=== PATIENT | female | born 1930 | race American Indian/Alaskan Native ===

== ENCOUNTER 2018-10-30 14:07 | Inpatient (IN) | payer MEDICARE, OTHER ==
[2018-10-30 14:08] VITALS: BMI 229.7
--- NOTE | 2018-10-30 15:19 | C.PDOC ---
History Of Present Illness 88 year old female with PMHx of dementia, HTN, and DVT presents [facility] the ED from [facility] for nose bleed. Patient is bleeding actively from nares. Denies any other physical complaints. HPI limited due to patient's clinical condition. Time Seen by Provider: 10/30/18 14:22 Chief Complaint (Nursing): ENT Problem History Per: Patient History/Exam Limitations: Clinical Condition Onset/Duration Of Symptoms: Hrs Current Symptoms Are (Timing): Still Present Past Medical History Reviewed: Historical Data, Nursing Documentation, Vital Signs Vital Signs: Last Vital Signs Temp 97.2 F L 10/30/18 14:12 Pulse 85 10/30/18 14:12 Resp 18 10/30/18 14:12 BP 127/46 L 10/30/18 14:12 Pulse Ox 84 L 10/30/18 14:12 - Medical History PMH: Arthritis, Dementia, Deep Vein Thrombosis, HTN, Hypercholesterolemia, Hypothyroidism Denies: Chronic Kidney Disease Surgical History: Coronary Stent Denies: Pacemaker - [facility] Procedures ESOPHAGOGASTRODUODENOSCOPY [EGD] W/CLOSED BIOPSY (03/26/01) FLEXIBLE SIGMOIDOSCOPY (03/26/01) INSERT INFUSION DEV IN L EXT JUGULAR VEIN, PERC (10/13/18) INSERTION OF INFUSION DEV INTO SUP VENA CAVA, PERC APPROACH (10/13/18) INTRODUCE OF OTH ANTI-INFECT INTO PERIPH VEIN, PERC APPROACH (10/13/18) ULTRASONOGRAPHY OF LEFT JUGULAR VEINS, GUIDANCE (10/13/18) ULTRASONOGRAPHY OF SUPERIOR VENA CAVA, GUIDANCE (10/13/18) Family History: States: No Known Family Hx - Social History Hx Alcohol Use: No Hx Substance Use: No - Immunization History Hx Tetanus Toxoid Vaccination: No Hx Influenza Vaccination: No Hx Pneumococcal Vaccination: No Review Of Systems Except As Marked, All Systems Reviewed And Found Negative. (limited due to patient's clinical condition) ENT: Positive for: Other (epistaxis ) Physical Exam - Physical Exam Additional Physical Exam Comments: Gen: VS reviewed, alert, well developed, well nourished, nontoxic, mild distress Eye: EOMI, PERRL Nose: Large blood clot in left nostril, dried blood noted to right nostril. Neck: no JVD, supple, no adenopathy CV: regular rate, regular rhythm, no rubs,no murmur, S1, S2 Pulm: no distress, clear to auscultation, no wheeze, no rhonchi, breath sounds equal, no rales Abd: soft, nontender, no guarding, no rebound, no rigidity Ext: Appears to move upper extremities spontaneously. Edema to b/l extremities. Pressure boots in b/l feet. Back: As per nursing, large sacral decubitus ulcer. Skin: good color, no rash, no cyanosis Psych: Limited due to patient's clinical condition Neuro: alert, awake. Limited due to patient clinical condition. ED Course And Treatment - Laboratory Results Result Diagrams: 10/30/18 18:45 10/30/18 18:45 ECG: Interpreted By Me (1447: sinus rhythm at 78 bpm, nml qrs, nml axis, low voltage, nonspecific t wave abn) O2 Sat by Pulse Oximetry: 84 (RA) Pulse Ox Interpretation: Abnormal Procedure: Blank - Time Time Performed: 18:41 - Time Out Time Out: Side verified, Site verified, Patient ID confirmed, Sterile procedures obs. - Procedure Procedure:: venipuncture necessitating physician skill - Consent obtained: Consent obtained: Verbal (from son) - Performed by: Performed by:: Attending physician - Indications Indications(s):: lack of IV access - Contraindications: Contraindications:: None - Result Result: Successful - Complications Complications:: Other (a 20 g IV was placed in the left AC, ultrasound guided, IV catheter was visualized directly into the EJ.) - Patient Tolerated Procedure Patient Tolerated Procedure:: Well Medical Decision Making Medical Decision Making: Procedure: Temporary packing placement 7.5cm Rapid Rhino placed in the left nostril. No further bleeding or drop noted to left nostril. Dried blood noted to right nostril. No blood noted to back of throat. 635p: the left midline catheter was nonfunctioning and could not be flushed. it was removed by myself, bleeding was noted and pressure dressing was applied. 710p: admit accepted by dr. lima, patient to be admitted for acute anemia. anemia possibly for acute blood loss from anemia but unlikely. transfuse 2 units prbc. consult to dr. steel and dr. murillo for ENT Disposition - Disposition Disposition: HOSPITALIZED Disposition Time: 19:10 Condition: GUARDED - Clinical Impression Clinical Impression: Anemia, Anterior epistaxis - Scribe Statement The provider has reviewed the documentation as recorded by the Scribe Shakila Paneque All medical record entries made by the Swapna were at my direction and personally dictated by me. I have reviewed the chart and agree that the record accurately reflects my personal performance of the history, physical exam, medical decision making, and the department course for this patient. I have also personally directed, reviewed, and agree with the discharge instructions and disposition.
[2018-10-30 18:58] LABS: BASO % 0.3 % (0.0-2.0); EOS # 0.1 K/uL (0.0-0.7); HEMOGLOBIN 7.4 g/dL (11.0-16.0); LYMPH # 1.2 K/uL (1.0-4.3); LYMPH % 10.3 % (20.0-40.0); MEAN CELL VOLUME 81.5 fL (81.0-99.0); MEAN CORPUSCULAR HGB CONC 31.9 g/dL (33.0-37.0); MEAN PLATELET VOLUME 8.3 fL (7.2-11.7); MONO # 0.6 K/uL (0.0-0.8); MONO % 5.3 % (0.0-10.0); NEUT # 9.7 K/uL (1.8-7.0); NEUT % 83.1 % (50.0-75.0); RBC 2.83 Mil/uL (3.80-5.20); RED CELL DISTRIBUTION WIDTH 18.1 % (11.5-14.5); WHITE BLOOD COUNT 11.7 K/uL (4.8-10.8)
[2018-10-30 19:15] LABS: ALB/GLOB RATIO 0.8 (1.0-2.1); ALBUMIN 2.5 g/dL (3.5-5.0); CALCIUM 8.4 mg/dl (8.6-10.4)
[2018-10-30] MEDS ORDERED: AMPicillin 1 GM in Sodium Chloride 0.9% 100 ML IV ONE (19:18)
[2018-10-30] MEDS ORDERED: Loperamide Hydrochloride 1 mg/5 ml Cup PO PRN (23:14)
[2018-10-30] MEDS ORDERED: Alum-Mag Hydrox-Simethicone Susp (30 mL) PO PRN (23:56)
[2018-10-30] MEDS ORDERED: Albuterol 0.083% Inhal Sol (2.5 mg/3 mL) UD INH PRN (23:57)
--- NOTE | 2018-10-31 07:35 | CP.PCM.CON ---
<Esa Rizvi - Last Filed: 10/31/18 08:26> History of Present Illness - History of Present Illness History of Present Illness: PGY-4 GI Fellow Consult Note The following obtained from chart review and hospital staff due to patient dementia/clinical condition Pt is an 88 yo BF with Dementia, CAD (s/p CABG?), HTN, DVT (on apixaban), h/o Sepsis due to UTI with PICC ongoing IV Abx, Sacral wound, MRSA presenting from [facility] for nose bleed. Spoke with son over the phone who states that patient is not conversive at baseline, but he states that she was in her normal state of health at the [facility] prior to the acute onset of nose bleed. States that he had not noticed nor heard of any bleeding elsewhere. Pt was found ot have a Hgb of 7.4 in ED down from baseline ~9.5; therefore, she was admitted for blood transfusion, anemia eval and further nose bleed treatment. During my encounter, patient was lying in bed with nasal packing in place and medina pplemental O2 mask over face. She would mumble after tactile stimulation. Nursing states that since admission pt has had small bowel movements that are brown in color. Unable to obtain ROS due to clinical condition/dementia. MHx: See above SurgHx: PICC, CABG Meds: reviewed in chart FamHx: Unable to obtain SocHx: Unable to obtain All: Codeine Past Patient History - Infectious Disease Hx of Infectious Diseases: None - Past Medical History & Family History Past Medical History?: Yes - Past Social History Smoking Status: Never Smoked - CARDIAC Hx Hypercholesterolemia: Yes Hx Hypertension: Yes Hx Pacemaker: No - PULMONARY Hx Respiratory Disorders: No - NEUROLOGICAL Hx Dementia: Yes - HEENT Hx HEENT Problems: Yes Hx Blind: Yes (Blind Left Eye) - RENAL Hx Chronic Kidney Disease: No - ENDOCRINE/METABOLIC Hx Hypothyroidism: Yes - HEMATOLOGICAL/ONCOLOGICAL Hx Cancer: No - INTEGUMENTARY Hx Dermatological Problems: No - MUSCULOSKELETAL/RHEUMATOLOGICAL Hx Arthritis: Yes Hx Falls: Yes - GASTROINTESTINAL Hx Gastrointestinal Disorders: No - GENITOURINARY/GYNECOLOGICAL Hx Genitourinary Disorders: No - PSYCHIATRIC Hx Substance Use: No - SURGICAL HISTORY Hx Coronary Artery Bypass Graft: Yes Hx Coronary Stent: Yes - ANESTHESIA Hx Anesthesia: Yes Hx Anesthesia Reactions: No Hx Malignant Hyperthermia: No Has any member of the family had a problem w/ anesthesia?: No Meds Allergies/Adverse Reactions: Allergies Allergy/AdvReac Type Severity Reaction Status Date / Time codeine Allergy ANAPHYLAXIS Verified 10/30/18 14:17 - Medications Medications: Current Medications Acetaminophen (Tylenol 325mg Tab) 650 mg PO Q6 PRN PRN Reason: Pain, Mild (1-3) Al Hydrox/Mg Hydrox/Simethicone (Maalox Plus 30 Ml) 30 ml PO Q4 PRN PRN Reason: Indigestion / Heartburn Albuterol Sulfate (Albuterol 0.083% Inhal Giovana (2.5 Mg/3 Ml) Ud) 2.5 mg INH RQ6 PRN PRN Reason: sob Apixaban (Eliquis) 2.5 mg PO BID ALFONZO Aspirin (Aspirin Chewable) 81 mg PO DAILY ALFONZO Famotidine (Pepcid) 20 mg PO DAILY ALFONZO Meropenem 500 mg/ Sodium (Chloride) 100 mls @ 100 mls/hr IVPB Q8H ALFONZO; Protocol Doxycycline Hyclate 100 mg/ (Sodium Chloride) 100 mls @ 100 mls/hr IVPB Q12H ALFONZO; Protocol Influenza Virus Vaccine (Fluzone Quad [id number]) 60 mcg IM .ONCE ONE Stop: 11/02/18 10:01 Insulin Aspart (Novolog) 0 unit SC ACHS ALFONZO; Protocol Latanoprost (Xalatan Opht) 0 ml OU HS ALFONZO Loperamide HCl (Imodium) 2 mg PO Q6 PRN PRN Reason: Diarrhea Magnesium Hydroxide (Milk Of Magnesia) 30 ml PO HS ALFONZO Pneumococcal Polyvalent Vaccine (Pneumovax 23 Vaccine) 0.5 ml IM .ONCE ONE Stop: 11/02/18 10:01 Rosuvastatin Calcium (Crestor) 10 mg PO HS ALFONZO Physical Exam - Constitutional Appears: No Acute Distress, Confused, Chronically Ill - Head Exam Head Exam: ATRAUMATIC, NORMAL INSPECTION - ENT Exam ENT Exam: Mucous Membranes Dry. absent: Mucous Membranes Moist Additional comments: nasal packing in bilateral nares - Respiratory Exam Respiratory Exam: Clear to Auscultation Bilateral, NORMAL BREATHING PATTERN - Cardiovascular Exam Cardiovascular Exam: REGULAR RHYTHM, RRR - GI/Abdominal Exam GI & Abdominal Exam: Normal Bowel Sounds, Soft. absent: Bruit, Diminished Bowel Sounds, Distended, Firm, Guarding, Hernia, Mass, Organomegaly, Pulsatile Mass, Rigid, Tenderness - Extremities Exam Additional comments: bilalteral compression device on legs, minor bilateral edema - Neurological Exam Neurological exam: Altered Additional comments: mumbles to tactile stimulation, Ox0 - Skin Skin Exam: Dry, Warm Results - Vital Signs Recent Vital Signs: Last Vital Signs Temp 97.9 F 10/31/18 06:32 Pulse 86 10/31/18 06:32 Resp 20 10/31/18 06:32 BP 147/81 10/31/18 06:32 Pulse Ox 96 10/31/18 00:15 - Labs Result Diagrams: 10/30/18 18:45 10/30/18 18:45 Labs: Laboratory Results - last 24 hr 10/30/18 10/30/18 10/30/18 18:45 18:45 18:45 WBC 11.7 H RBC 2.83 L Hgb 7.4 L Hct 23.1 L MCV 81.5 MCH 26.0 L MCHC 31.9 L RDW 18.1 H Plt Count 136 MPV 8.3 Neut % (Auto) 83.1 H Lymph % (Auto) 10.3 L [place] % (Auto) 5.3 Eos % (Auto) 1.0 Baso % (Auto) 0.3 Neut # (Auto) 9.7 H Lymph # (Auto) 1.2 [place] # (Auto) 0.6 Eos # (Auto) 0.1 Baso # (Auto) 0.0 Sodium 138 Potassium 5.3 H Chloride 104 Carbon Dioxide 29 Anion Gap 10 BUN 90 H Creatinine 1.2 Est GFR ( Amer) 51 Est GFR (Non-Af Amer) 42 POC Glucose (mg/dL) Random Glucose 92 Calcium 8.4 L Total Bilirubin 0.7 AST 22 ALT 32 Alkaline Phosphatase 156 H Total Protein 5.9 L Albumin 2.5 L Globulin 3.3 Albumin/Globulin Ratio 0.8 L Blood Type B POSITIVE Blood Type Confirm B POSITIVE Antibody Screen Negative 10/31/18 06:37 WBC RBC Hgb Hct MCV MCH MCHC RDW Plt Count MPV Neut % (Auto) Lymph % (Auto) [place] % (Auto) Eos % (Auto) Baso % (Auto) Neut # (Auto) Lymph # (Auto) [place] # (Auto) Eos # (Auto) Baso # (Auto) Sodium Potassium Chloride Carbon Dioxide Anion Gap BUN Creatinine Est GFR ( Amer) Est GFR (Non-Af Amer) POC Glucose (mg/dL) 80 Random Glucose Calcium Total Bilirubin AST ALT Alkaline Phosphatase Total Protein Albumin Globulin Albumin/Globulin Ratio Blood Type Blood Type Confirm Antibody Screen Assessment & Plan - Assessment and Plan (Free Text) Assessment: 88 yo BF with CAD, DVT (on apixaban), HTN, Dementia, Sacral Wound presenting from [facility] for epistaxis found to have worsening anemia. # Acute on Chronic Anemia: Vitals stable. Hgb 7.4 from about 9.5 baseline. Normocytic on admission but previously microcytic. Son states EGD many years ago for possible "stomach ulcer." No bleeding noted by caregivers/staff other than from nares. Currently undergoing 2 units PRBC transfusion per primary team. # Dementia: Not conversive at baseline. # DVT: On apixaban # H/o CAD, likely CABG in past: EF preserved per Echo in early 2018 Plan: - Risks, benefits, alternatives discussed with iraida Champagne and Aj. At this time, they prefer to monitor Hgb post transfusion and treat with medication rather than endoscopic evaluation with likely intubation for procedure given extensive nasal packing and advanced dementia. - NPO - PPI IV Daily - Monitor Hgb post transfusion - Cont Apixaban, ASA for now Pt seen and examined with Dr. Kaufman; please see attestation for further recs/changes. Esa Rizvi, PGY-4 <Ayan Kaufman - Last Filed: 10/31/18 09:38> Meds - Medications Medications: Current Medications Acetaminophen (Tylenol 325mg Tab) 650 mg PO Q6 PRN PRN Reason: Pain, Mild (1-3) Al Hydrox/Mg Hydrox/Simethicone (Maalox Plus 30 Ml) 30 ml PO Q4 PRN PRN Reason: Indigestion / Heartburn Albuterol Sulfate (Albuterol 0.083% Inhal Giovana (2.5 Mg/3 Ml) Ud) 2.5 mg INH RQ6 PRN PRN Reason: sob Aspirin (Aspirin Chewable) 81 mg PO DAILY ALFONZO Enoxaparin Sodium (Lovenox) 40 mg SC DAILY ALFONZO Famotidine (Pepcid) 20 mg PO DAILY ALFONZO Meropenem 500 mg/ Sodium (Chloride) 100 mls @ 100 mls/hr IVPB Q8H ALFONZO; Protocol Doxycycline Hyclate 100 mg/ (Sodium Chloride) 100 mls @ 100 mls/hr IVPB Q12H ALFONZO; Protocol Influenza Virus Vaccine (Fluzone Quad [id number]) 60 mcg IM .ONCE ONE Stop: 11/02/18 10:01 Insulin Aspart (Novolog) 0 unit SC ACHS ALFONZO; Protocol Latanoprost (Xalatan Opht) 0 ml OU HS ALFONZO Loperamide HCl (Imodium) 2 mg PO Q6 PRN PRN Reason: Diarrhea Magnesium Hydroxide (Milk Of Magnesia) 30 ml PO HS ALFONZO Pantoprazole Sodium (Protonix Inj) 40 mg IVP DAILY ALFONZO Pneumococcal Polyvalent Vaccine (Pneumovax 23 Vaccine) 0.5 ml IM .ONCE ONE Stop: 11/02/18 10:01 Rosuvastatin Calcium (Crestor) 10 mg PO HS ALFONZO Results - Vital Signs Recent Vital Signs: Last Vital Signs Temp 98.1 F 10/31/18 07:00 Pulse 88 10/31/18 08:56 Resp 20 10/31/18 07:00 BP 114/82 10/31/18 07:00 Pulse Ox 100 10/31/18 07:00 - Labs Result Diagrams: 10/30/18 18:45 10/30/18 18:45 Labs: Laboratory Results - last 24 hr 10/30/18 10/30/18 10/30/18 18:45 18:45 18:45 WBC 11.7 H RBC 2.83 L Hgb 7.4 L Hct 23.1 L MCV 81.5 MCH 26.0 L MCHC 31.9 L RDW 18.1 H Plt Count 136 MPV 8.3 Neut % (Auto) 83.1 H Lymph % (Auto) 10.3 L [place] % (Auto) 5.3 Eos % (Auto) 1.0 Baso % (Auto) 0.3 Neut # (Auto) 9.7 H Lymph # (Auto) 1.2 [place] # (Auto) 0.6 Eos # (Auto) 0.1 Baso # (Auto) 0.0 Sodium 138 Potassium 5.3 H Chloride 104 Carbon Dioxide 29 Anion Gap 10 BUN 90 H Creatinine 1.2 Est GFR ( Amer) 51 Est GFR (Non-Af Amer) 42 POC Glucose (mg/dL) Random Glucose 92 Calcium 8.4 L Total Bilirubin 0.7 AST 22 ALT 32 Alkaline Phosphatase 156 H Total Protein 5.9 L Albumin 2.5 L Globulin 3.3 Albumin/Globulin Ratio 0.8 L Blood Type B POSITIVE Blood Type Confirm B POSITIVE Antibody Screen Negative 10/31/18 06:37 WBC RBC Hgb Hct MCV MCH MCHC RDW Plt Count MPV Neut % (Auto) Lymph % (Auto) [place] % (Auto) Eos % (Auto) Baso % (Auto) Neut # (Auto) Lymph # (Auto) [place] # (Auto) Eos # (Auto) Baso # (Auto) Sodium Potassium Chloride Carbon Dioxide Anion Gap BUN Creatinine Est GFR ( Amer) Est GFR (Non-Af Amer) POC Glucose (mg/dL) 80 Random Glucose Calcium Total Bilirubin AST ALT Alkaline Phosphatase Total Protein Albumin Globulin Albumin/Globulin Ratio Blood Type Blood Type Confirm Antibody Screen Attending/Attestation - Attestation I have personally seen and examined this patient.: Yes I have fully participated in the care of the patient.: Yes I have reviewed all pertinent clinical information: Yes Notes (Text): 10/31/18 09:34 I have seen and examined patient with GI fellow. Agree with above documentation with the following additions. In brief, this is an 88 year old female with history of dementia, DVT on eliquis, HTN, CAD/CABG, bedbound with sacral decubitus ulcer who presents to hospital with complaint of sudden onset epistaxis which began yesterday. Patient is not able to participate in m eaningful conversation, additional information obtained via chart review and discussion with nursing staff and patient's son at bedside. There is no reported abdominal pain, nausea, vomiting, diarrhea, melena, weight loss, or rectal bleeding. Patient has been able to tolerate PO puree consistency diet with assistance as per son. As per nursing staff, patient with brown colored bowel movement today. Unclear regarding prior endoscopic history. Additional physical examination: Psych: unable to assess due to underlying dementia - Clear liquid diet as tolerated - Patient currently receiving PRBC transfusion, continue to monitor - Continue with PPI therapy - Follow up ENT recommendations - Will continue to monitor patient clinical course
[2018-10-31] MEDS: (Novolog) Insulin Aspart, Recombinant 100 u/ml 10 ml vial SC SCH ×4 (08:04→21:50)
[2018-10-31] MEDS: Meropenem 500 MG in Sodium Chloride 0.9% 100 ML IVPB SCH ×2 (11:02→17:53)
--- NOTE | 2018-10-31 11:16 | CARD ---
APPROVED REPORT Date of service: 10/30/2018 EKG Measurement Heart [id number] <Conclusion> Sinus rhythm with premature supraventricular complexes Possible Anterior infarct, age undetermined Abnormal ECG
--- NOTE | 2018-10-31 12:04 | VASCLAB ---
Date of service: 10/30/2018 PROCEDURE: Right Upper Extremity Venous Duplex Exam HISTORY: Edema, DVT PRIORS: None. TECHNIQUE: Right upper extremity, internal jugular, subclavian, axillary, brachial, ulnar, radial, basilic and upper cephalic veins were evaluated. Flow was assessed with color Doppler, compressibility, assessment of phasic flow and augmentation response. Report prepared by RAUL Aguilar, RVT FINDINGS: RIGHT: 1. Internal Jugular: 1.1. Compressibility - Fully compressible: Thrombus - None : Flow - Phasic: Augmentation -Normal: Reflux - None. 2. Subclavian: 2.1. Compressibility - Fully compressible: Thrombus - None : Flow - Phasic: Augmentation -Normal: Reflux - None. 3. Axillary: 3.1. Compressibility - Fully compressible: Thrombus - None : Flow - Phasic: Augmentation -Normal: Reflux - None. 4. Brachial: 4.1. Compressibility - Fully compressible: Thrombus - None: Flow - Phasic: Augmentation -Normal: Reflux - None. 5. Ulnar: 5.1. Compressibility - Fully compressible: Thrombus - None: Flow - Phasic: Augmentation -Normal: Reflux - None. 6. Radial: 6.1. Compressibility - Fully compressible: Thrombus - None: Flow - Phasic: Augmentation - Normal: Reflux - None. 7. Cephalic: 7.1. Not visualized. 8. Basilic: 8.1. Compressibility - Incompressible: Thrombus - Chronic: Flow - Absent OTHER FINDINGS: Normal venous flow noted in the LEFT internal jugular and left subclavian veins. IMPRESSION: Right: No evidence of DEEP vein thrombosis of the right upper extremity with excellent venous flow. Normal valve function noted of the right side. 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 Findings were reported to .
[2018-10-31] MEDS: Enoxaparin 30 mg Syringe SC SCH (13:04)
[2018-10-31 14:08] LABS: BASO # 0.1 K/uL (0.0-0.2); BASO % 1.1 % (0.0-2.0); EOS # 0.1 K/uL (0.0-0.7); EOS % 0.8 % (0.0-4.0); LYMPH % 8.5 % (20.0-40.0); MEAN CORPUSCULAR HEMOGLOBIN 27.5 pg (27.0-31.0); MEAN CORPUSCULAR HGB CONC 32.9 g/dL (33.0-37.0); MEAN PLATELET VOLUME 8.3 fL (7.2-11.7); MONO # 0.6 K/uL (0.0-0.8); MONO % 5.4 % (0.0-10.0); NEUT # 9.9 K/uL (1.8-7.0); NEUT % 84.2 % (50.0-75.0); NRBC % 0.1 % (0.0-2.0); PLATELET COUNT 142 K/uL (130-400); RBC 3.48 Mil/uL (3.80-5.20); RED CELL DISTRIBUTION WIDTH 16.3 % (11.5-14.5); WHITE BLOOD COUNT 11.7 K/uL (4.8-10.8)
[2018-10-31 14:09] LABS: HEMOGLOBIN 9.6 g/dL (11.0-16.0); MEAN CELL VOLUME 83.8 fL (81.0-99.0)
[2018-10-31 14:21] LABS: ALB/GLOB RATIO 0.8 (1.0-2.1); ALBUMIN 2.6 g/dL (3.5-5.0); CALCIUM 8.4 mg/dl (8.6-10.4)
[2018-10-31 14:37] LABS: EOSINOPHIL 1 % (0-4); LYMPHOCYTE 10 % (20-40); MONOCYTE 6 % (0-10); NEUTROPHIL 83 % (50-75); NUCLEATED RED BLOOD CELL 1 % (0-0); PLATELET ESTIMATE NORMAL (NORMAL); TOTAL CELLS COUNTED 100
[2018-10-31 14:43] LABS: ANISOCYTOSIS SLIGHT; BURR CELLS SLIGHT; HYPOCHROMIC SLIGHT; POIKILOCYTOSIS SLIGHT; TARGET CELLS SLIGHT
[2018-10-31 14:47] LABS: TEARDROP CELLS SLIGHT
[2018-10-31 15:30] LABS: FOLATE 15.9 ng/mL
--- NOTE | 2018-10-31 19:02 | CP.PCM.CON ---
History of Present Illness - History of Present Illness History of Present Illness: 88 year old female with PMHx of dementia, HTN, and DVT presents to the ED from half-way for nose bleed. Patient is bleeding actively from nares. Denies any other physical complaints. referred for ID eval of celllulitis s/p PICC line removal Cultures pending IV rx ordered - Medical History PMH: Arthritis, Dementia, Deep Vein Thrombosis, HTN, Hypercholesterolemia, Hypothyroidism Denies: Chronic Kidney Disease Surgical History: Coronary Stent Denies: Pacemaker - [facility] Procedures ESOPHAGOGASTRODUODENOSCOPY [EGD] W/CLOSED BIOPSY (03/26/01) FLEXIBLE SIGMOIDOSCOPY (03/26/01) INSERT INFUSION DEV IN L EXT JUGULAR VEIN, PERC (10/13/18) INSERTION OF INFUSION DEV INTO SUP VENA CAVA, PERC APPROACH (10/13/18) INTRODUCE OF OTH ANTI-INFECT INTO PERIPH VEIN, PERC APPROACH (10/13/18) ULTRASONOGRAPHY OF LEFT JUGULAR VEINS, GUIDANCE (10/13/18) ULTRASONOGRAPHY OF SUPERIOR VENA CAVA, GUIDANCE (10/13/18) Past Patient History - Infectious Disease Hx of Infectious Diseases: None - Past Medical History & Family History Past Medical History?: Yes - Past Social History Smoking Status: Never Smoked - CARDIAC Hx Hypercholesterolemia: Yes Hx Hypertension: Yes Hx Pacemaker: No - PULMONARY Hx Respiratory Disorders: No - NEUROLOGICAL Hx Dementia: Yes - HEENT Hx HEENT Problems: Yes Hx Blind: Yes (Blind Left Eye) - RENAL Hx Chronic Kidney Disease: No - ENDOCRINE/METABOLIC Hx Hypothyroidism: Yes - HEMATOLOGICAL/ONCOLOGICAL Hx Cancer: No - INTEGUMENTARY Hx Dermatological Problems: No - MUSCULOSKELETAL/RHEUMATOLOGICAL Hx Arthritis: Yes Hx Falls: Yes - GASTROINTESTINAL Hx Gastrointestinal Disorders: No - GENITOURINARY/GYNECOLOGICAL Hx Genitourinary Disorders: No - PSYCHIATRIC Hx Substance Use: No - SURGICAL HISTORY Hx Coronary Artery Bypass Graft: Yes Hx Coronary Stent: Yes - ANESTHESIA Hx Anesthesia: Yes Hx Anesthesia Reactions: No Hx Malignant Hyperthermia: No Has any member of the family had a problem w/ anesthesia?: No Meds Allergies/Adverse Reactions: Allergies Allergy/AdvReac Type Severity Reaction Status Date / Time codeine Allergy ANAPHYLAXIS Verified 10/30/18 14:17 - Medications Medications: Current Medications Acetaminophen (Tylenol 325mg Tab) 650 mg PO Q6 PRN PRN Reason: Pain, Mild (1-3) Al Hydrox/Mg Hydrox/Simethicone (Maalox Plus 30 Ml) 30 ml PO Q4 PRN PRN Reason: Indigestion / Heartburn Albuterol Sulfate (Albuterol 0.083% Inhal Giovana (2.5 Mg/3 Ml) Ud) 2.5 mg INH RQ6 PRN PRN Reason: sob Aspirin (Aspirin Chewable) 81 mg PO DAILY [facility] Enoxaparin Sodium (Lovenox) 30 mg SC DAILY [facility] Last Admin: 10/31/18 13:04 Dose: 30 mg Famotidine (Pepcid) 20 mg PO DAILY [facility] Last Admin: 10/31/18 11:02 Dose: 20 mg Meropenem 500 mg/ Sodium (Chloride) 100 mls @ 100 mls/hr IVPB Q8H [facility]; Protocol Last Admin: 10/31/18 17:53 Dose: 100 mls/hr Doxycycline Hyclate 100 mg/ (Sodium Chloride) 100 mls @ 100 mls/hr IVPB Q12H [facility]; Protocol Last Admin: 10/31/18 13:02 Dose: 100 mls/hr Influenza Virus Vaccine (Fluzone Quad [id number]) 60 mcg IM .ONCE ONE Stop: 11/02/18 10:01 Insulin Aspart (Novolog) 0 unit SC ACHS [facility]; Protocol Last Admin: 10/31/18 17:45 Dose: Not Given Latanoprost (Xalatan Opht) 0 ml OU HS [facility] Loperamide HCl (Imodium) 2 mg PO Q6 PRN PRN Reason: Diarrhea Magnesium Hydroxide (Milk Of Magnesia) 30 ml PO HS [facility] Pantoprazole Sodium (Protonix Inj) 40 mg IVP DAILY [facility] Last Admin: 10/31/18 11:01 Dose: 40 mg Pneumococcal Polyvalent Vaccine (Pneumovax 23 Vaccine) 0.5 ml IM .ONCE ONE Stop: 11/02/18 10:01 Rosuvastatin Calcium (Crestor) 10 mg PO HS [facility] Physical Exam - Constitutional Appears: No Acute Distress, Chronically Ill - Head Exam Head Exam: ATRAUMATIC, NORMOCEPHALIC - Eye Exam Eye Exam: absent: Scleral icterus - ENT Exam ENT Exam: Mucous Membranes Dry - Neck Exam Neck exam: Negative for: Lymphadenopathy - Respiratory Exam Respiratory Exam: Decreased Breath Sounds, Rhonchi - Cardiovascular Exam Cardiovascular Exam: REGULAR RHYTHM, +S1, +S2 - GI/Abdominal Exam GI & Abdominal Exam: Diminished Bowel Sounds, Soft. absent: Tenderness - Rectal Exam Rectal Exam: Deferred - Exam Exam: NORMAL INSPECTION - Extremities Exam Extremities exam: Negative for: calf tenderness, pedal pulses present - Back Exam Back exam: absent: CVA tenderness (L), CVA tenderness (R) - Neurological Exam Neurological exam: Alert, CN II-XII Intact, Motor Sensory Deficit - Psychiatric Exam Psychiatric exam: Depressed - Skin Skin Exam: Dry Additional comments: + decubitus Results - Vital Signs Recent Vital Signs: Last Vital Signs Temp 97 F L 10/31/18 16:00 Pulse 78 10/31/18 16:00 Resp 20 10/31/18 16:00 BP 160/79 H 10/31/18 16:00 Pulse Ox 99 10/31/18 16:00 - Labs Result Diagrams: 11/01/18 06:52 11/01/18 06:52 Labs: Laboratory Results - last 24 hr 10/30/18 10/30/18 10/30/18 18:45 18:45 18:45 WBC 11.7 H RBC 2.83 L Hgb 7.4 L Hct 23.1 L MCV 81.5 MCH 26.0 L MCHC 31.9 L RDW 18.1 H Plt Count 136 MPV 8.3 Neut % (Auto) 83.1 H Lymph % (Auto) 10.3 L [place] % (Auto) 5.3 Eos % (Auto) 1.0 Baso % (Auto) 0.3 Neut # (Auto) 9.7 H Lymph # (Auto) 1.2 [place] # (Auto) 0.6 Eos # (Auto) 0.1 Baso # (Auto) 0.0 Neutrophils % (Manual) Lymphocytes % (Manual) Monocytes % (Manual) Eosinophils % (Manual) Nucleated RBC % Platelet Estimate Hypochromasia (manual) Poikilocytosis (manual Anisocytosis (manual) Target Cells Tear Drop Cells [place] Cells Retic Count Sodium 138 Potassium 5.3 H Chloride 104 Carbon Dioxide 29 Anion Gap 10 BUN 90 H Creatinine 1.2 Est GFR ( Amer) 51 Est GFR (Non-Af Amer) 42 POC Glucose (mg/dL) Random Glucose 92 Calcium 8.4 L Ferritin Total Bilirubin 0.7 AST 22 ALT 32 Alkaline Phosphatase 156 H Total Protein 5.9 L Albumin 2.5 L Globulin 3.3 Albumin/Globulin Ratio 0.8 L Vitamin B12 Folate Blood Type B POSITIVE Blood Type Confirm B POSITIVE Antibody Screen Negative 10/31/18 10/31/18 10/31/18 06:37 12:06 14:01 WBC 11.7 H RBC 3.48 L Hgb 9.6 L D Hct 29.1 L MCV 83.8 D MCH 27.5 MCHC 32.9 L RDW 16.3 H Plt Count 142 MPV 8.3 Neut % (Auto) 84.2 H Lymph % (Auto) 8.5 L [place] % (Auto) 5.4 Eos % (Auto) 0.8 Baso % (Auto) 1.1 Neut # (Auto) 9.9 H Lymph # (Auto) 1.0 [place] # (Auto) 0.6 Eos # (Auto) 0.1 Baso # (Auto) 0.1 Neutrophils % (Manual) 83 H Lymphocytes % (Manual) 10 L Monocytes % (Manual) 6 Eosinophils % (Manual) 1 Nucleated RBC % 1 H Platelet Estimate Normal Hypochromasia (manual) Slight Poikilocytosis (manual Slight Anisocytosis (manual) Slight Target Cells Slight Tear Drop Cells Slight [place] Cells Slight Retic Count 0.2 L Sodium Potassium Chloride Carbon Dioxide Anion Gap BUN Creatinine Est GFR ( Amer) Est GFR (Non-Af Amer) POC Glucose (mg/dL) 80 76 Random Glucose Calcium Ferritin Total Bilirubin AST ALT Alkaline Phosphatase Total Protein Albumin Globulin Albumin/Globulin Ratio Vitamin B12 Folate Blood Type Blood Type Confirm Antibody Screen 10/31/18 10/31/18 14:01 16:58 WBC RBC Hgb Hct MCV MCH MCHC RDW Plt Count MPV Neut % (Auto) Lymph % (Auto) [place] % (Auto) Eos % (Auto) Baso % (Auto) Neut # (Auto) Lymph # (Auto) [place] # (Auto) Eos # (Auto) Baso # (Auto) Neutrophils % (Manual) Lymphocytes % (Manual) Monocytes % (Manual) Eosinophils % (Manual) Nucleated RBC % Platelet Estimate Hypochromasia (manual) Poikilocytosis (manual Anisocytosis (manual) Target Cells Tear Drop Cells [place] Cells Retic Count Sodium 138 Potassium 5.1 Chloride 105 Carbon Dioxide 26 Anion Gap 12 BUN 84 H Creatinine 1.2 Est GFR ( Amer) 51 Est GFR (Non-Af Amer) 42 POC Glucose (mg/dL) 72 Random Glucose 68 D Calcium 8.4 L Ferritin 132.0 Total Bilirubin 0.9 AST 21 ALT 27 Alkaline Phosphatase 182 H Total Protein 5.9 L Albumin 2.6 L Globulin 3.2 Albumin/Globulin Ratio 0.8 L Vitamin B12 862 Folate 15.9 Blood Type Blood Type Confirm Antibody Screen Assessment & Plan (1) Anemia Status: Acute (2) Acute kidney injury Status: Acute (3) CHF exacerbation Status: Acute (4) Decubitus ulcer Status: Acute (5) Dehydration Status: Acute (6) Failure to thrive Status: Acute (7) Hypertension Status: Acute - Assessment and Plan (Free Text) Assessment: sacral decubitus r/o sepsis check cultures wound care iv antibiotic
--- NOTE | 2018-10-31 19:13 | HP ---
HISTORY OF PRESENT ILLNESS: I have known her for a while. She was in the senior care, in the hospital, and she went to another facility and then at that facility before being treated, she had a nosebleed, sent to [facility]. Now, she is packed. She also has other issues. She is an 88-year-old who has anemia. She is to be transfused. Her nosebleed, which is now packed. 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 She has a history of DVT, on Eliquis. An 88-year-old female with new nosebleed that had to be packed with anemia down to 7, getting transfused, now with the packed nose. PAST MEDICAL HISTORY: She has dementia, hypertension, DVT, large sacral ulcer, high cholesterol, hypothyroidism, chronic kidney disease, coronary stents. She has had esophagogastroduodenoscopy, flexible sigmoidoscopies, insertion of infusion device. FAMILY HISTORY: Unknown. SOCIAL HISTORY: No alcohol. No drinking. No drugs. Cannot talk to her. She only speaks one word every now and then, that is her condition and her mentation, she is very nonverbal and cannot really have a conversation, but she will say words every now and then. REVIEW OF SYSTEMS: She is having a nosebleed and is packed now. PHYSICAL EXAMINATION: VITAL SIGNS: She has a 98.1 temp, 114/82 blood pressure, 88 pulse, 20 respiratory rate. She is on an oxygen mask, but cannot use nasal cannula because her nose is packed and with the oxygen mask she has had 100% O2 sat. HEENT: Head: Atraumatic and normocephalic. The nose is packed. Extraocular muscles are intact. NECK: No JVD. Supple. HEART: Regular rate. Normal S1, S2. LUNGS: Decreased breath sounds, poor inspiration but no wheezes, rhonchi, or rales. ABDOMEN: Soft, nontender. Positive bowel sounds. No guarding. No rebound. No CVA tenderness. Obese. EXTREMITIES: There is +1/4 pitting edema. She has pressure boots on her both lower extremities. She has a large decubitus ulcer being treated for at the subacute rehab. Otherwise, her skin is fairly okay. NEUROLOGIC: She is alert, does not always talk to you. Right now, she is not talking to me. She is closing her eyes tight. MEDICATIONS: She is currently on albuterol, aspirin, Crestor, doxycycline IV. I stopped the Eliquis right now, put on Lovenox as per Ear, Nose, and Throat, so I want to remove the pack in 2 days. She has Imodium as needed, Maalox, and Merrem IV for the sacral ulcer, Milk of Magnesia, NovoLog, Pepcid, Protonix, Tylenol, Xalatan. LABORATORY DATA: She has 138 sodium , potassium 5.2, let us see what this morning's potassium is, BUN 90, creatinine 1.2, GFR is 42, sugars 80, calcium is 8.4, total bili is 0.7, AST is 22, ALT is 32, alk phos 156, total protein is 5.9. White count is 11.7, hemoglobin 7.4, she is getting 2 units of packed red blood cells, hematocrit 22.1, platelets of 136. IMPRESSION AND PLAN: She had multiple consults of Ear, Nose, and Throat. She will have GI, Infectious Disease, and Hematology. We are going to keep a very close eye on her. She is in bed. We are transfusing her. We will check her labs tomorrow and she has a bleeding nose. Woo Thakur DO
--- NOTE | 2018-10-31 21:15 | CON ---
DATE: 10/31/2018 REQUESTING PHYSICIAN: Dr. Thakur. REASON FOR CONSULTATION: Epistaxis. HISTORY OF PRESENT ILLNESS: This is an 88-year-old female who presents to the ER with epistaxis of the left ____ nodule for one day. The patient was packed in the emergency room and has not had any bleeding since. No throat pain. PAST MEDICAL HISTORY: As noted in the chart by me. MEDICATIONS: As noted in the chart by me. ALLERGIES: NOTED IN THE CHART BY ME. PHYSICAL EXAMINATION: HEAD: Atraumatic and normocephalic. FACE: Good facial movements bilaterally. CONSTITUTIONAL: Well fed, well nourished. COMMUNICATION: The patient does not communicate that well. EXTERNAL NOSE AND EARS: No masses, no lesions, no erythema, no edema. INTERNAL NOSE: Packed nose on the left. No masses, no lesions, no erythema, no edema on the right. Deviated septum. ORAL CAVITY AND OROPHARYNX: No bloody postnasal drip. No masses, no lesions, no erythema, no edema. LIPS AND GUMS: No masses, no lesions, no erythema, no edema. NECK: Supple. THYROID: No thyromegaly. No goiter. LYMPH NODES: No lymphadenopathy of the neck. ASSESSMENT: 1. Epistaxis. 2. Deviated septum. PLAN: Continue pack. Continue IV antibiotics. I will remove pack in two days. Charles Galindo MD
[2018-10-31] MEDS: Magnesium Hydroxide Susp 30 ml UD PO SCH (21:49)
[2018-10-31] MEDS: Latanoprost 2.5 ml Opht Soln OU SCH (21:49)
--- NOTE | 2018-10-31 23:57 | CP.PCM.CON ---
History of Present Illness - History of Present Illness History of Present Illness: 88 year old female with a history of dementia, CAD, HTN, DVT on Eliquis, sacral decubitus ulcer, admitted with epistaxis and anemia. I am unable to obtain a history from the patient due to dementia. She presented from the retirement with epistaxis and found to have a hgb of 7.4. She is s/p 2U PRBC with an improvement in her hgb to 9.6. Past medical, surgical, family, social history cannot be obtained from the patient. Allergies: Codeine Review of systems cannot be obtained. Past Patient History - Infectious Disease Hx of Infectious Diseases: None - Past Medical History & Family History Past Medical History?: Yes - Past Social History Smoking Status: Never Smoked - CARDIAC Hx Hypercholesterolemia: Yes Hx Hypertension: Yes Hx Pacemaker: No - PULMONARY Hx Respiratory Disorders: No - NEUROLOGICAL Hx Dementia: Yes - HEENT Hx HEENT Problems: Yes Hx Blind: Yes (Blind Left Eye) - RENAL Hx Chronic Kidney Disease: No - ENDOCRINE/METABOLIC Hx Hypothyroidism: Yes - HEMATOLOGICAL/ONCOLOGICAL Hx Cancer: No - INTEGUMENTARY Hx Dermatological Problems: No - MUSCULOSKELETAL/RHEUMATOLOGICAL Hx Arthritis: Yes Hx Falls: Yes - GASTROINTESTINAL Hx Gastrointestinal Disorders: No - GENITOURINARY/GYNECOLOGICAL Hx Genitourinary Disorders: No - PSYCHIATRIC Hx Substance Use: No - SURGICAL HISTORY Hx Coronary Artery Bypass Graft: Yes Hx Coronary Stent: Yes - ANESTHESIA Hx Anesthesia: Yes Hx Anesthesia Reactions: No Hx Malignant Hyperthermia: No Has any member of the family had a problem w/ anesthesia?: No Meds Allergies/Adverse Reactions: Allergies Allergy/AdvReac Type Severity Reaction Status Date / Time codeine Allergy ANAPHYLAXIS Verified 10/30/18 14:17 - Medications Medications: Current Medications Acetaminophen (Tylenol 325mg Tab) 650 mg PO Q6 PRN PRN Reason: Pain, Mild (1-3) Al Hydrox/Mg Hydrox/Simethicone (Maalox Plus 30 Ml) 30 ml PO Q4 PRN PRN Reason: Indigestion / Heartburn Albuterol Sulfate (Albuterol 0.083% Inhal Giovana (2.5 Mg/3 Ml) Ud) 2.5 mg INH RQ6 PRN PRN Reason: sob Aspirin (Aspirin Chewable) 81 mg PO DAILY [facility] Enoxaparin Sodium (Lovenox) 30 mg SC DAILY [facility] Last Admin: 10/31/18 13:04 Dose: 30 mg Famotidine (Pepcid) 20 mg PO DAILY [facility] Last Admin: 10/31/18 11:02 Dose: 20 mg Meropenem 500 mg/ Sodium (Chloride) 100 mls @ 100 mls/hr IVPB Q8H [facility]; Protocol Last Admin: 10/31/18 17:53 Dose: 100 mls/hr Doxycycline Hyclate 100 mg/ (Sodium Chloride) 100 mls @ 100 mls/hr IVPB Q12H [facility]; Protocol Last Admin: 10/31/18 13:02 Dose: 100 mls/hr Influenza Virus Vaccine (Fluzone Quad [id number]) 60 mcg IM .ONCE ONE Stop: 11/02/18 10:01 Insulin Aspart (Novolog) 0 unit SC [facility]; Protocol Last Admin: 10/31/18 21:50 Dose: Not Given Latanoprost (Xalatan Opht) 0 ml OU HS [facility] Last Admin: 10/31/18 21:49 Dose: 1 ml Loperamide HCl (Imodium) 2 mg PO Q6 PRN PRN Reason: Diarrhea Magnesium Hydroxide (Milk Of Magnesia) 30 ml PO [facility] Last Admin: 10/31/18 21:49 Dose: 30 ml Pantoprazole Sodium (Protonix Inj) 40 mg IVP DAILY [facility] Last Admin: 10/31/18 11:01 Dose: 40 mg Pneumococcal Polyvalent Vaccine (Pneumovax 23 Vaccine) 0.5 ml IM .ONCE ONE Stop: 11/02/18 10:01 Rosuvastatin Calcium (Crestor) 10 mg PO [facility] Last Admin: 10/31/18 21:49 Dose: 10 mg Physical Exam - Head Exam Head Exam: ATRAUMATIC - Eye Exam Eye Exam: Normal appearance - ENT Exam ENT Exam: Mucous Membranes Dry - Respiratory Exam Respiratory Exam: NORMAL BREATHING PATTERN - Cardiovascular Exam Cardiovascular Exam: +S1, +S2 - GI/Abdominal Exam GI & Abdominal Exam: Normal Bowel Sounds - Neurological Exam Neurological exam: Altered - Psychiatric Exam Psychiatric exam: Flat Affect - Skin Skin Exam: Warm Results - Vital Signs Recent Vital Signs: Last Vital Signs Temp 97 F L 10/31/18 16:00 Pulse 71 10/31/18 18:00 Resp 20 10/31/18 16:00 BP 160/79 H 10/31/18 16:00 Pulse Ox 99 10/31/18 16:00 - Labs Result Diagrams: 10/31/18 14:01 10/31/18 14:01 Labs: Laboratory Results - last 24 hr 10/30/18 10/31/18 10/31/18 18:45 06:37 12:06 WBC RBC Hgb Hct MCV MCH MCHC RDW Plt Count MPV Neut % (Auto) Lymph % (Auto) [place] % (Auto) Eos % (Auto) Baso % (Auto) Neut # (Auto) Lymph # (Auto) [place] # (Auto) Eos # (Auto) Baso # (Auto) Neutrophils % (Manual) Lymphocytes % (Manual) Monocytes % (Manual) Eosinophils % (Manual) Nucleated RBC % Platelet Estimate Hypochromasia (manual) Poikilocytosis (manual Anisocytosis (manual) Target Cells Tear Drop Cells [place] Cells Retic Count Sodium Potassium Chloride Carbon Dioxide Anion Gap BUN Creatinine Est GFR ( Amer) Est GFR (Non-Af Amer) POC Glucose (mg/dL) 80 76 Random Glucose Calcium Ferritin Total Bilirubin AST ALT Alkaline Phosphatase Total Protein Albumin Globulin Albumin/Globulin Ratio Vitamin B12 Folate Blood Type B POSITIVE Blood Type Confirm B POSITIVE Antibody Screen Negative 10/31/18 10/31/18 10/31/18 14:01 14:01 16:58 WBC 11.7 H RBC 3.48 L Hgb 9.6 L D Hct 29.1 L MCV 83.8 D MCH 27.5 MCHC 32.9 L RDW 16.3 H Plt Count 142 MPV 8.3 Neut % (Auto) 84.2 H Lymph % (Auto) 8.5 L [place] % (Auto) 5.4 Eos % (Auto) 0.8 Baso % (Auto) 1.1 Neut # (Auto) 9.9 H Lymph # (Auto) 1.0 [place] # (Auto) 0.6 Eos # (Auto) 0.1 Baso # (Auto) 0.1 Neutrophils % (Manual) 83 H Lymphocytes % (Manual) 10 L Monocytes % (Manual) 6 Eosinophils % (Manual) 1 Nucleated RBC % 1 H Platelet Estimate Normal Hypochromasia (manual) Slight Poikilocytosis (manual Slight Anisocytosis (manual) Slight Target Cells Slight Tear Drop Cells Slight [place] Cells Slight Retic Count 0.2 L Sodium 138 Potassium 5.1 Chloride 105 Carbon Dioxide 26 Anion Gap 12 BUN 84 H Creatinine 1.2 Est GFR ( Amer) 51 Est GFR (Non-Af Amer) 42 POC Glucose (mg/dL) 72 Random Glucose 68 D Calcium 8.4 L Ferritin 132.0 Total Bilirubin 0.9 AST 21 ALT 27 Alkaline Phosphatase 182 H Total Protein 5.9 L Albumin 2.6 L Globulin 3.2 Albumin/Globulin Ratio 0.8 L Vitamin B12 862 Folate 15.9 Blood Type Blood Type Confirm Antibody Screen 10/31/18 21:19 WBC RBC Hgb Hct MCV MCH MCHC RDW Plt Count MPV Neut % (Auto) Lymph % (Auto) [place] % (Auto) Eos % (Auto) Baso % (Auto) Neut # (Auto) Lymph # (Auto) [place] # (Auto) Eos # (Auto) Baso # (Auto) Neutrophils % (Manual) Lymphocytes % (Manual) Monocytes % (Manual) Eosinophils % (Manual) Nucleated RBC % Platelet Estimate Hypochromasia (manual) Poikilocytosis (manual Anisocytosis (manual) Target Cells Tear Drop Cells [place] Cells Retic Count Sodium Potassium Chloride Carbon Dioxide Anion Gap BUN Creatinine Est GFR ( Amer) Est GFR (Non-Af Amer) POC Glucose (mg/dL) 133 H Random Glucose Calcium Ferritin Total Bilirubin AST ALT Alkaline Phosphatase Total Protein Albumin Globulin Albumin/Globulin Ratio Vitamin B12 Folate Blood Type Blood Type Confirm Antibody Screen Assessment & Plan (1) Anemia Assessment and Plan: secondary to acute blood loss from epistaxis; ENT evaluation, Romy posada. element of anemia of CKD element of anemia of chronic disease from sacral decubitus ulcer s/p 2U PRBC normal iron/b12/folate stores Status: Acute (2) Leukocytosis Assessment and Plan: on antibiotics Thank you for this interesting consult. Status: Acute
[2018-11-01] MEDS: Meropenem 500 MG in Sodium Chloride 0.9% 100 ML IVPB SCH ×3 (01:51→19:00)
[2018-11-01 07:08] LABS: MEAN CELL VOLUME 82.9 fL (81.0-99.0); MEAN CORPUSCULAR HEMOGLOBIN 27.4 pg (27.0-31.0); MEAN PLATELET VOLUME 8.5 fL (7.2-11.7); RBC 3.67 Mil/uL (3.80-5.20); RED CELL DISTRIBUTION WIDTH 16.8 % (11.5-14.5)
[2018-11-01 07:12] LABS: ALB/GLOB RATIO 0.8 (1.0-2.1); ALBUMIN 2.4 g/dL (3.5-5.0); CALCIUM 8.3 mg/dl (8.6-10.4)
--- NOTE | 2018-11-01 07:37 | CP.PCM.PN ---
<Esa Rizvi - Last Filed: 11/01/18 08:37> Subjective - Date & Time of Evaluation Date of Evaluation: 11/01/18 Time of Evaluation: 07:25 - Subjective Subjective: PGY-4 GI Fellow Prog Note Pt lying in bed when seen this AM. Non-verbal. Nursing at bedside denied any signs of melena nor hematochezia but state that pt hasn't moved bowels recently. Hgb responded appropriately to PRBCs yesterday. Unable to obtain ROS due to clinical condition Objective - Vital Signs/Intake and Output Vital Signs (last 24 hours): Temp Pulse Resp BP Pulse Ox 98.1 F 81 20 148/90 96 10/31/18 23:30 11/01/18 04:18 10/31/18 23:30 10/31/18 23:30 10/31/18 23:30 Intake and Output: 11/01/18 11/01/18 06:59 18:59 Intake Total 640 Output Total 400 Balance 240 - Medications Medications: Current Medications Acetaminophen (Tylenol 325mg Tab) 650 mg PO Q6 PRN PRN Reason: Pain, Mild (1-3) Al Hydrox/Mg Hydrox/Simethicone (Maalox Plus 30 Ml) 30 ml PO Q4 PRN PRN Reason: Indigestion / Heartburn Albuterol Sulfate (Albuterol 0.083% Inhal Giovana (2.5 Mg/3 Ml) Ud) 2.5 mg INH RQ6 PRN PRN Reason: sob Aspirin (Aspirin Chewable) 81 mg PO DAILY [facility] Enoxaparin Sodium (Lovenox) 30 mg SC DAILY [facility] Last Admin: 10/31/18 13:04 Dose: 30 mg Famotidine (Pepcid) 20 mg PO DAILY [facility] Last Admin: 10/31/18 11:02 Dose: 20 mg Meropenem 500 mg/ Sodium (Chloride) 100 mls @ 100 mls/hr IVPB Q8H [facility]; Protocol Last Admin: 11/01/18 01:51 Dose: 100 mls/hr Doxycycline Hyclate 100 mg/ (Sodium Chloride) 100 mls @ 100 mls/hr IVPB Q12H [facility]; Protocol Last Admin: 11/01/18 00:24 Dose: 100 mls/hr Influenza Virus Vaccine (Fluzone Quad [id number]) 60 mcg IM .ONCE ONE Stop: 11/02/18 10:01 Insulin Aspart (Novolog) 0 unit SC ACHS [facility]; Protocol Last Admin: 10/31/18 21:50 Dose: Not Given Latanoprost (Xalatan Opht) 0 ml OU [facility] Last Admin: 10/31/18 21:49 Dose: 1 ml Loperamide HCl (Imodium) 2 mg PO Q6 PRN PRN Reason: Diarrhea Magnesium Hydroxide (Milk Of Magnesia) 30 ml PO [facility] Last Admin: 10/31/18 21:49 Dose: 30 ml Pantoprazole Sodium (Protonix Inj) 40 mg IVP DAILY [facility] Last Admin: 10/31/18 11:01 Dose: 40 mg Pneumococcal Polyvalent Vaccine (Pneumovax 23 Vaccine) 0.5 ml IM .ONCE ONE Stop: 11/02/18 10:01 Rosuvastatin Calcium (Crestor) 10 mg PO [facility] Last Admin: 10/31/18 21:49 Dose: 10 mg - Labs Labs: 11/01/18 06:52 11/01/18 06:52 - Constitutional Appears: No Acute Distress, Confused, Chronically Ill - Head Exam Head Exam: ATRAUMATIC, NORMAL INSPECTION - ENT Exam ENT Exam: Mucous Membranes Dry. absent: Mucous Membranes Moist - Respiratory Exam Respiratory Exam: NORMAL BREATHING PATTERN. absent: Accessory Muscle Use - GI/Abdominal Exam GI & Abdominal Exam: Soft, Normal Bowel Sounds. absent: Bruit, Distended, Firm, Guarding, Rigid, Tenderness, Mass, Organomegaly, Pulsatile Mass Assessment and Plan - Assessment and Plan (Free Text) Assessment: 88 yo BF with CAD, DVT (on apixaban), HTN, Dementia, Sacral Wound presenting from halfway for epistaxis found to have worsening anemia. # Acute on Chronic Anemia: Vitals stable. Hgb 7.4 from about 9.5 baseline. S/p 2 units PRBCs with appropriate response. Normocytic on admission but previously microcytic. Son states EGD many years ago for possible "stomach ulcer." No bleeding noted by caregivers/staff other than from nares. Currently undergoing 2 units PRBC transfusion per primary team. # Dementia: Not conversive at baseline. # DVT: On apixaban # H/o CAD, likely CABG in past: EF preserved per Echo in early 2017 Plan: - CLD -> Puree today - PPI PO Daily x 4 weeks - Cont Apixaban, ASA - No plans for endoscopic evaluation at this time Thank you for the consult. Please call if questions. Pt seen and examined with Dr. Kaufman; please see attestation for further recs/changes. Esa Rizvi, PGY-4 <Ayan Kaufman - Last Filed: 11/01/18 08:55> Objective - Vital Signs/Intake and Output Vital Signs (last 24 hours): Temp Pulse Resp BP Pulse Ox 99.2 F 79 18 94/57 L 98 11/01/18 07:00 11/01/18 07:00 11/01/18 07:00 11/01/18 07:00 11/01/18 07:00 Intake and Output: 11/01/18 11/01/18 06:59 18:59 Intake Total 640 Output Total 400 Balance 240 - Medications Medications: Current Medications Acetaminophen (Tylenol 325mg Tab) 650 mg PO Q6 PRN PRN Reason: Pain, Mild (1-3) Al Hydrox/Mg Hydrox/Simethicone (Maalox Plus 30 Ml) 30 ml PO Q4 PRN PRN Reason: Indigestion / Heartburn Albuterol Sulfate (Albuterol 0.083% Inhal Giovana (2.5 Mg/3 Ml) Ud) 2.5 mg INH RQ6 PRN PRN Reason: sob Aspirin (Aspirin Chewable) 81 mg PO DAILY [facility] Enoxaparin Sodium (Lovenox) 30 mg SC DAILY [facility] Last Admin: 10/31/18 13:04 Dose: 30 mg Famotidine (Pepcid) 20 mg PO DAILY [facility] Last Admin: 10/31/18 11:02 Dose: 20 mg Meropenem 500 mg/ Sodium (Chloride) 100 mls @ 100 mls/hr IVPB Q8H [facility]; Protocol Last Admin: 11/01/18 01:51 Dose: 100 mls/hr Doxycycline Hyclate 100 mg/ (Sodium Chloride) 100 mls @ 100 mls/hr IVPB Q12H [facility]; Protocol Last Admin: 11/01/18 00:24 Dose: 100 mls/hr Influenza Virus Vaccine (Fluzone Quad [id number]) 60 mcg IM .ONCE ONE Stop: 11/02/18 10:01 Insulin Aspart (Novolog) 0 unit SC ACHS [facility]; Protocol Last Admin: 12/20/18 21:50 Dose: Not Given Latanoprost (Xalatan Opht) 0 ml OU [facility] Last Admin: 10/31/18 21:49 Dose: 1 ml Loperamide HCl (Imodium) 2 mg PO Q6 PRN PRN Reason: Diarrhea Magnesium Hydroxide (Milk Of Magnesia) 30 ml PO [facility] Last Admin: 10/31/18 21:49 Dose: 30 ml Pantoprazole Sodium (Protonix Inj) 40 mg IVP DAILY [facility] Last Admin: 10/31/18 11:01 Dose: 40 mg Pneumococcal Polyvalent Vaccine (Pneumovax 23 Vaccine) 0.5 ml IM .ONCE ONE Stop: 11/02/18 10:01 Rosuvastatin Calcium (Crestor) 10 mg PO [facility] Last Admin: 10/31/18 21:49 Dose: 10 mg - Labs Labs: 11/01/18 06:52 11/01/18 06:52 Attending/Attestation - Attestation I have personally seen and examined this patient.: Yes I have fully participated in the care of the patient.: Yes I have reviewed all pertinent clinical information, including history, physical exam and plan: Yes Notes (Text): 11/01/18 08:53 I have seen and examined patient with GI fellow. No acute events overnight, no bowel movements over past 24 hours, no recurrent epistaxis reported by nursing staff. Patient denies abdominal pain, nausea, vomiting, fever/chills. Tolerating PO liquids without difficulty. CAD DVT on eliquis HTN Dementia Sacral decubitus ulcer Anemia, epistaxis - resolved - Advance diet to puree consistency as tolerated - H/H stable, continue to monitor - Continue with PPI therapy - Follow up ENT recommendations - No further planned GI intervention at this time, will sign off case. Please reconsult as necessary, thank you.
[2018-11-01] MEDS: (Novolog) Insulin Aspart, Recombinant 100 u/ml 10 ml vial SC SCH ×4 (10:11→22:47)
[2018-11-01] MEDS: Enoxaparin 30 mg Syringe SC SCH (10:13)
--- NOTE | 2018-11-01 16:20 | PN ---
DATE: 11/01/2018 SUBJECTIVE: I saw her at [facility], resting comfortably in bed. She has a nose packing in place. I discussed this with the ear, nose and throat doctor. I will remove the tomorrow depending on how she is doing. She is on albuterol, aspirin, Crestor, doxycycline, loperamide, Lasix, Lovenox, Merrem, magnesium, Pepcid, Protonix, vancomycin, eye drops. PHYSICAL EXAMINATION: VITAL SIGNS: She has a 99.2 temp, 79 pulse, 94/67 blood pressure, 18 respiratory rate, 98% O2 sat on room air. HEENT: Head is atraumatic, normocephalic. Nose is packed. She had a bad nosebleed. HEART: Regular rate. LUNGS: Decreased breath sounds. Poor inspiration. ABDOMEN: Soft, obese, nontender, positive bowel sounds. EXTREMITIES: No edema. LABORATORY DATA: She has a 10 white count, best it has been; 10 hemoglobin, 38.4 hematocrit with 139 platelets. She has 140 sodium; potassium is 5, BUN is 80, creatinine 1.2, little better; GFR is 42; sugar is 102; calcium is 8.3. Total bili is 0.8, AST is 20, ALT is 29, alk phos 159, total protein is 5.4, folate is 15.9, vitamin B12 is 862. ASSESSMENT AND PLAN: She is being seen by Gastroenterology, Infectious Disease, Hematology and Ear, Nose and Throat. If possible, I will take out the packing in the next two days, today or tomorrow. Hemoglobin is staying steady at 10 and her kidney functions are improving. Whenever Family Court Counsellor arrange for discharge that is fine with me. We will continue the antibiotics, I believe at the subacute rehab. has multiple problems; acute blood loss anemia secondary to nosebleed while she was packed. She has had dementia, sacral ulcer with methicillin-resistant Staphylococcus aureus and hopefully she will continue to improve. Woo Thakur DO [facility]
--- NOTE | 2018-11-01 18:39 | CP.PCM.PN ---
Subjective - Date & Time of Evaluation Date of Evaluation: 11/01/18 Time of Evaluation: 09:00 - Subjective Subjective: remains confused afeb nad cultures neg thus far Objective - Vital Signs/Intake and Output Vital Signs (last 24 hours): Temp Pulse Resp BP Pulse Ox 98.2 F 84 20 115/65 97 11/01/18 15:00 11/01/18 15:00 11/01/18 15:00 11/01/18 15:00 11/01/18 15:00 Intake and Output: 11/01/18 11/01/18 06:59 18:59 Intake Total 640 400 Output Total 400 Balance 240 400 - Medications Medications: Current Medications Acetaminophen (Tylenol 325mg Tab) 650 mg PO Q6 PRN PRN Reason: Pain, Mild (1-3) Al Hydrox/Mg Hydrox/Simethicone (Maalox Plus 30 Ml) 30 ml PO Q4 PRN PRN Reason: Indigestion / Heartburn Albuterol Sulfate (Albuterol 0.083% Inhal Giovana (2.5 Mg/3 Ml) Ud) 2.5 mg INH RQ6 PRN PRN Reason: sob Aspirin (Aspirin Chewable) 81 mg PO DAILY [facility] Last Admin: 11/01/18 10:13 Dose: 81 mg Enoxaparin Sodium (Lovenox) 30 mg SC DAILY [facility] Last Admin: 11/01/18 10:13 Dose: 30 mg Famotidine (Pepcid) 20 mg PO DAILY [facility] Last Admin: 11/01/18 10:13 Dose: 20 mg Meropenem 500 mg/ Sodium (Chloride) 100 mls @ 100 mls/hr IVPB Q8H [facility]; Protocol Last Admin: 11/01/18 10:12 Dose: 100 mls/hr Doxycycline Hyclate 100 mg/ (Sodium Chloride) 100 mls @ 100 mls/hr IVPB Q12H [facility]; Protocol Last Admin: 11/01/18 11:55 Dose: 100 mls/hr Influenza Virus Vaccine (Fluzone Quad [id number]) 60 mcg IM .ONCE ONE Stop: 11/02/18 10:01 Insulin Aspart (Novolog) 0 unit SC ACHS [facility]; Protocol Last Admin: 11/01/18 12:53 Dose: Not Given Latanoprost (Xalatan Opht) 0 ml OU [facility] Last Admin: 10/31/18 21:49 Dose: 1 ml Loperamide HCl (Imodium) 2 mg PO Q6 PRN PRN Reason: Diarrhea Magnesium Hydroxide (Milk Of Magnesia) 30 ml PO [facility] Last Admin: 10/31/18 21:49 Dose: 30 ml Pantoprazole Sodium (Protonix Inj) 40 mg IVP [facility]ILY [facility] Last Admin: 11/01/18 10:13 Dose: 40 mg Pneumococcal Polyvalent Vaccine (Pneumovax 23 Vaccine) 0.5 ml IM .ONCE ONE Stop: 11/02/18 10:01 Rosuvastatin Calcium (Crestor) 10 mg PO [facility] Last Admin: 10/31/18 21:49 Dose: 10 mg - Labs Labs: 11/01/18 06:52 11/01/18 06:52 - Constitutional Appears: Non-toxic - Head Exam Head Exam: ATRAUMATIC, NORMOCEPHALIC - Eye Exam Eye Exam: EOMI. absent: Scleral icterus - ENT Exam ENT Exam: Mucous Membranes Dry - Neck Exam Neck Exam: absent: Lymphadenopathy - Respiratory Exam Respiratory Exam: Decreased Breath Sounds, Rhonchi - Cardiovascular Exam Cardiovascular Exam: REGULAR RHYTHM, +S1, +S2 - GI/Abdominal Exam GI & Abdominal Exam: Distended, Soft. 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
[2018-11-01] MEDS: Vancomycin 1 gm/NS 200 ml 1 GM/200 ML BAG IVPB ONE (20:21)
[2018-11-01] MEDS: Vancomycin 1 gm/NS 200 ml 1 GM/200 ML BAG IVPB SCH (21:00)
[2018-11-01] MEDS: Magnesium Hydroxide Susp 30 ml UD PO SCH (22:49)
[2018-11-01] MEDS: Latanoprost 2.5 ml Opht Soln OU SCH (23:00)
[2018-11-02 00:28] LABS: URINE BILIRUBIN NEGATIVE (NEGATIVE); URINE CLARITY Hazy (Clear); URINE COLOR YELLOW (YELLOW); URINE GLUCOSE (UA) Normal (Normal)
[2018-11-02 00:29] LABS: URINE BLOOD NEGATIVE (NEGATIVE); URINE LEUKOCYTE ESTERASE 3+ Leu/uL (Negative); URINE PROTEIN 1+ mg/dL (NEGATIVE); URINE UROBILINOGEN Normal mg/dL (0.2-1.0)
[2018-11-02 00:30] LABS: URINE BACTERIA MANY (<OCC); WBC CLUMPS FEW /hpf
[2018-11-02] MEDS: Meropenem 500 MG in Sodium Chloride 0.9% 100 ML IVPB SCH ×3 (02:35→17:38)
[2018-11-02 07:16] LABS: BASO # 0.1 K/uL (0.0-0.2); EOS # 0.1 K/uL (0.0-0.7); EOS % 1.7 % (0.0-4.0); HEMOGLOBIN 10.1 g/dL (11.0-16.0); LYMPH # 1.5 K/uL (1.0-4.3); LYMPH % 17.2 % (20.0-40.0); MEAN CELL VOLUME 83.9 fL (81.0-99.0); MEAN CORPUSCULAR HEMOGLOBIN 27.7 pg (27.0-31.0); MEAN PLATELET VOLUME 9.2 fL (7.2-11.7); MONO # 0.7 K/uL (0.0-0.8); MONO % 8.4 % (0.0-10.0); NEUT # 6.3 K/uL (1.8-7.0); NEUT % 71.7 % (50.0-75.0); NRBC % 0.1 % (0.0-2.0); RBC 3.63 Mil/uL (3.80-5.20); RED CELL DISTRIBUTION WIDTH 17.3 % (11.5-14.5); WHITE BLOOD COUNT 8.8 K/uL (4.8-10.8)
[2018-11-02 07:46] LABS: ALB/GLOB RATIO 0.8 (1.0-2.1); ALBUMIN 2.4 g/dL (3.5-5.0); CALCIUM 8.4 mg/dl (8.6-10.4)
[2018-11-02] MEDS: (Novolog) Insulin Aspart, Recombinant 100 u/ml 10 ml vial SC SCH ×4 (09:07→21:31)
[2018-11-02] MEDS ORDERED: Influenza Vaccine 60 MCG/0.5 ML SYR (3 yr & up) IM ONE (10:00)
[2018-11-02] MEDS ORDERED: Pneumococcal 23-Valent Vaccine IM ONE (10:00)
[2018-11-02] MEDS: Enoxaparin 30 mg Syringe SC SCH (11:04)
--- NOTE | 2018-11-02 14:33 | CP.PCM.CON ---
History of Present Illness - History of Present Illness History of Present Illness: Gen Sx: Dr Cerda Pt S&E. Known to Dr Cerda and surgical team from recent admission to [facility]. Wound evaluated. Pt is not verbally responsive at this time. We can continue to manage with wound vac therapy. Pt may need some localized debridement but in the setting of her current anemia and bleeding issues this is better deferred to a later time as another incidence of acute blood loss can have profound detrimental effects. Review of Systems - Review of Systems Systems not reviewed;Unavailable: Dementia Past Patient History - Infectious Disease Hx of Infectious Diseases: None - Past Medical History & Family History Past Medical History?: Yes - Past Social History Smoking Status: Never Smoked - CARDIAC Hx Hypercholesterolemia: Yes Hx Hypertension: Yes Hx Pacemaker: No - PULMONARY Hx Respiratory Disorders: No - NEUROLOGICAL Hx Dementia: Yes - HEENT Hx HEENT Problems: Yes Hx Blind: Yes (Blind Left Eye) - RENAL Hx Chronic Kidney Disease: No - ENDOCRINE/METABOLIC Hx Hypothyroidism: Yes - HEMATOLOGICAL/ONCOLOGICAL Hx Cancer: No - INTEGUMENTARY Hx Dermatological Problems: No - MUSCULOSKELETAL/RHEUMATOLOGICAL Hx Arthritis: Yes Hx Falls: Yes - GASTROINTESTINAL Hx Gastrointestinal Disorders: No - GENITOURINARY/GYNECOLOGICAL Hx Genitourinary Disorders: No - PSYCHIATRIC Hx Substance Use: No - SURGICAL HISTORY Hx Coronary Artery Bypass Graft: Yes Hx Coronary Stent: Yes - ANESTHESIA Hx Anesthesia: Yes Hx Anesthesia Reactions: No Hx Malignant Hyperthermia: No Has any member of the family had a problem w/ anesthesia?: No Meds Allergies/Adverse Reactions: Allergies Allergy/AdvReac Type Severity Reaction Status Date / Time codeine Allergy ANAPHYLAXIS Verified 10/30/18 14:17 - Medications Medications: Current Medications Acetaminophen (Tylenol 325mg Tab) 650 mg PO Q6 PRN PRN Reason: Pain, Mild (1-3) Al Hydrox/Mg Hydrox/Simethicone (Maalox Plus 30 Ml) 30 ml PO Q4 PRN PRN Reason: Indigestion / Heartburn Albuterol Sulfate (Albuterol 0.083% Inhal Giovana (2.5 Mg/3 Ml) Ud) 2.5 mg INH RQ6 PRN PRN Reason: sob Aspirin (Aspirin Chewable) 81 mg PO DAILY [facility] Last Admin: 11/02/18 11:00 Dose: 81 mg Enoxaparin Sodium (Lovenox) 30 mg SC DAILY [facility] Last Admin: 11/02/18 11:04 Dose: 30 mg Famotidine (Pepcid) 20 mg PO DAILY [facility] Last Admin: 11/02/18 11:00 Dose: 20 mg Meropenem 500 mg/ Sodium (Chloride) 100 mls @ 100 mls/hr IVPB Q8H [facility]; Protocol Last Admin: 11/02/18 09:07 Dose: 100 mls/hr Vancomycin/Sodium Chloride (Vancomycin 1 Gm/Ns 200 Ml) 1 gm in 200 mls @ 133 mls/hr IVPB Q24H [facility]; Protocol Stop: 11/06/18 20:01 Last Admin: 11/01/18 21:00 Dose: 133 mls/hr Insulin Aspart (Novolog) 0 unit SC ACHS [facility]; Protocol Last Admin: 11/02/18 12:38 Dose: Not Given Latanoprost (Xalatan Opht) 0 ml OU HS [facility] Last Admin: 11/01/18 23:00 Dose: 2.5 ml Loperamide HCl (Imodium) 2 mg PO Q6 PRN PRN Reason: Diarrhea Magnesium Hydroxide (Milk Of Magnesia) 30 ml PO HS [facility] Last Admin: 11/01/18 22:49 Dose: 30 ml Pantoprazole Sodium (Protonix Inj) 40 mg IVP DAILY [facility] Last Admin: 11/02/18 11:01 Dose: 40 mg Rosuvastatin Calcium (Crestor) 10 mg PO HS [facility] Last Admin: 11/01/18 22:49 Dose: 10 mg Sodium Polystyrene Sulfonate (Kayexalate Susp) 15 gm PO DAILY [facility] Physical Exam - Constitutional Appears: Chronically Ill - Respiratory Exam Respiratory Exam: absent: Respiratory Distress - Rectal Exam Additional comments: ~10 x 15 cm stage IV decubitus ulcer with fibrous exudate, no puss or malodor Results - Vital Signs Recent Vital Signs: Last Vital Signs Temp 98.2 F 11/02/18 07:00 Pulse 76 11/02/18 07:00 Resp 18 11/02/18 07:00 BP 161/90 H 11/02/18 07:00 Pulse Ox 97 11/02/18 07:00 - Labs Result Diagrams: 11/02/18 07:04 11/02/18 07:04 Labs: Laboratory Results - last 24 hr 11/01/18 11/01/18 11/01/18 16:34 21:18 23:55 WBC RBC Hgb Hct MCV MCH MCHC RDW Plt Count MPV Neut % (Auto) Lymph % (Auto) Tift % (Auto) Eos % (Auto) Baso % (Auto) Neut # (Auto) Lymph # (Auto) Tift # (Auto) Eos # (Auto) Baso # (Auto) Differential Comment Sodium Potassium Chloride Carbon Dioxide Anion Gap BUN Creatinine Est GFR ( Amer) Est GFR (Non-Af Amer) POC Glucose (mg/dL) 145 H 179 H Random Glucose Calcium Total Bilirubin AST ALT Alkaline Phosphatase Total Protein Albumin Globulin Albumin/Globulin Ratio Urine Color Yellow Urine Clarity Hazy Urine pH 5.0 Ur Specific [place] 1.014 Urine Protein 1+ H Urine Glucose (UA) Normal Urine Ketones Negative Urine Blood Negative Urine Nitrate Negative Urine Bilirubin Negative Urine Urobilinogen Normal Ur Leukocyte Esterase 3+ H Urine WBC (Auto) 506 H Urine RBC (Auto) 27 H Urine WBC Clumps (Auto) Few H Urine Bacteria Many H Hyaline Casts 3-5 H Urine Yeast (Budding) Many H 11/02/18 11/02/18 11/02/18 06:49 07:04 07:04 WBC 8.8 RBC 3.63 L Hgb 10.1 L Hct 30.5 L MCV 83.9 MCH 27.7 MCHC 33.0 RDW 17.3 H Plt Count 112 L D MPV 9.2 Neut % (Auto) 71.7 Lymph % (Auto) 17.2 L Tift % (Auto) 8.4 Eos % (Auto) 1.7 Baso % (Auto) 1.0 Neut # (Auto) 6.3 Lymph # (Auto) 1.5 Tift # (Auto) 0.7 Eos # (Auto) 0.1 Baso # (Auto) 0.1 Differential Comment Sodium 139 Potassium 5.6 H Chloride 108 H Carbon Dioxide 27 Anion Gap 10 BUN 80 H Creatinine 1.1 Est GFR ( Amer) 57 Est GFR (Non-Af Amer) 47 POC Glucose (mg/dL) 169 H Random Glucose 153 H D Calcium 8.4 L Total Bilirubin 0.5 AST 27 ALT 22 Alkaline Phosphatase 149 H Total Protein 5.4 L Albumin 2.4 L Globulin 3.1 Albumin/Globulin Ratio 0.8 L Urine Color Urine Clarity Urine pH Ur Specific [place] Urine Protein Urine Glucose (UA) Urine Ketones Urine Blood Urine Nitrate Urine Bilirubin Urine Urobilinogen Ur Leukocyte Esterase Urine WBC (Auto) Urine RBC (Auto) Urine WBC Clumps (Auto) Urine Bacteria Hyaline Casts Urine Yeast (Budding) 11/02/18 11:49 WBC RBC Hgb Hct MCV MCH MCHC RDW Plt Count MPV Neut % (Auto) Lymph % (Auto) Tift % (Auto) Eos % (Auto) Baso % (Auto) Neut # (Auto) Lymph # (Auto) Tift # (Auto) Eos # (Auto) Baso # (Auto) Differential Comment Sodium Potassium Chloride Carbon Dioxide Anion Gap BUN Creatinine Est GFR ( Amer) Est GFR (Non-Af Amer) POC Glucose (mg/dL) 123 H Random Glucose Calcium Total Bilirubin AST ALT Alkaline Phosphatase Total Protein Albumin Globulin Albumin/Globulin Ratio Urine Color Urine Clarity Urine pH Ur Specific [place] Urine Protein Urine Glucose (UA) Urine Ketones Urine Blood Urine Nitrate Urine Bilirubin Urine Urobilinogen Ur Leukocyte Esterase Urine WBC (Auto) Urine RBC (Auto) Urine WBC Clumps (Auto) Urine Bacteria Hyaline Casts Urine Yeast (Budding) Assessment & Plan - Assessment and Plan (Free Text) Assessment: 88F with recent epistaxis and anemia being evaluated for stage IV decubitus Plan: continue wound vac therapy can consider Santyl for enzymatic debridement will consider debridement if does not improve and when current issues have resolved and hgb has stabilized, possible as outpatient d/w Dr Prashant Joy, PGY4
--- NOTE | 2018-11-02 14:40 | CP.PCM.PN ---
Subjective - Date & Time of Evaluation Date of Evaluation: 11/02/18 Time of Evaluation: 14:36 - Subjective Subjective: No epistaxis since nose packed. Removed pack today. left epistaxis constant mod for days resolved. patient is confused and can not give further history pmh: as in chart meds: as in chart all: as in chart head: atraumatic face: good movements const: well fed comm: does not communicate well external nose and ears: no masses, no lesions nose: deviated septum, no epistaxis, no masses oc/op: no masses, no lesions, no bloody PND lips/gums: no masses, no lesions neck: supple thyroid: no goiter lymph: no lad a/P epistaxis resolved deviated septum ok to D/C from ent point Objective - Vital Signs/Intake and Output Vital Signs (last 24 hours): Temp Pulse Resp BP Pulse Ox 98.2 F 76 18 161/90 H 97 11/02/18 07:00 11/02/18 07:00 11/02/18 07:00 11/02/18 07:00 11/02/18 07:00 Intake and Output: 11/02/18 11/02/18 06:59 18:59 Intake Total 640 Output Total 500 Balance 140 - Medications Medications: Current Medications Acetaminophen (Tylenol 325mg Tab) 650 mg PO Q6 PRN PRN Reason: Pain, Mild (1-3) Al Hydrox/Mg Hydrox/Simethicone (Maalox Plus 30 Ml) 30 ml PO Q4 PRN PRN Reason: Indigestion / Heartburn Albuterol Sulfate (Albuterol 0.083% Inhal Giovana (2.5 Mg/3 Ml) Ud) 2.5 mg INH RQ6 PRN PRN Reason: sob Aspirin (Aspirin Chewable) 81 mg PO DAILY [facility] Last Admin: 11/02/18 11:00 Dose: 81 mg Enoxaparin Sodium (Lovenox) 30 mg SC DAILY [facility] Last Admin: 11/02/18 11:04 Dose: 30 mg Famotidine (Pepcid) 20 mg PO DAILY [facility] Last Admin: 11/02/18 11:00 Dose: 20 mg Meropenem 500 mg/ Sodium (Chloride) 100 mls @ 100 mls/hr IVPB Q8H [facility]; Protocol Last Admin: 11/02/18 09:07 Dose: 100 mls/hr Vancomycin/Sodium Chloride (Vancomycin 1 Gm/Ns 200 Ml) 1 gm in 200 mls @ 133 mls/hr IVPB Q24H [facility]; Protocol Stop: 11/06/18 20:01 Last Admin: 11/01/18 21:00 Dose: 133 mls/hr Insulin Aspart (Novolog) 0 unit SC ACHS [facility]; Protocol Last Admin: 11/02/18 12:38 Dose: Not Given Latanoprost (Xalatan Opht) 0 ml OU HS [facility] Last Admin: 11/01/18 23:00 Dose: 2.5 ml Loperamide HCl (Imodium) 2 mg PO Q6 PRN PRN Reason: Diarrhea Magnesium Hydroxide (Milk Of Magnesia) 30 ml PO HS [facility] Last Admin: 11/01/18 22:49 Dose: 30 ml Pantoprazole Sodium (Protonix Inj) 40 mg IVP DAILY [facility] Last Admin: 11/02/18 11:01 Dose: 40 mg Rosuvastatin Calcium (Crestor) 10 mg PO HS [facility] Last Admin: 11/01/18 22:49 Dose: 10 mg Sodium Polystyrene Sulfonate (Kayexalate Susp) 15 gm PO DAILY [facility] - Labs Labs: 11/02/18 07:04 11/02/18 07:04
[2018-11-02] MEDS: Sod Polystyrene Sulf 15 gm/60 ml Susp PO SCH (16:20)
--- NOTE | 2018-11-02 16:25 | PN ---
DATE: 11/02/2018 SUBJECTIVE: I saw her resting in bed. I am hoping today for the nosebleed and the packing to be removed by Ear, Nos, and Throat. There is a consult for surgery with recommendation from Infectious Disease for possible colostomy, so that the sacral ulcer and the osteomyelitis of the sacrum can heal. She is on IV antibiotics. She did say hello to me this morning, opened her eyes for a second. The nose packing is still in. PHYSICAL EXAMINATION: VITAL SIGNS: Temperature 98.2, pulse 76, blood pressure 161/90, respiratory rate 18, and O2 saturations 97% on room 2 L nasal cannula. HEART: Regular rate. LUNGS: Decreased breath sounds, but clear. EXTREMITIES: No edema. SKIN: She has a sacral ulcer. MEDICATIONS: She is on albuterol, aspirin, Crestor, Imodium, Kayexalate for an elevated potassium, Lovenox, Maalox, Merrem IV, milk of magnesia, NovoLog, Pepcid, Protonix, Tylenol, vancomycin IV, and Xalatan. LABORATORY DATA: Sodium 139, potassium 5.6, Kayexalate was given, BUN is 80, and creatinine is 1.1, a little bit better. I will get Renal involved. GFR is 47, sugar is 133, calcium is 8.4. Total bilirubin is 0.5, AST is 27, ALT is 22, and alkaline phosphatase is 149. Urine showed many bacteria. ASSESSMENT AND PLAN: She is being seen by Infectious Disease, GI, ENT, Oncology, also Surgery who will now see her for possible colostomy or further debridement of the sacral ulcer. We will check her labs tomorrow. Hopefully, the packing of the nose could come out today. Continue with the IV antibiotics the sacrum. Will continue with aggressive treatment and care on the patient. Woo Thakur DO [facility]
[2018-11-02 16:30] VITALS: RESP 20
[2018-11-02] MEDS: Vancomycin 1 gm/NS 200 ml 1 GM/200 ML BAG IVPB ONE (21:00)
[2018-11-02] MEDS: Vancomycin 1 gm/NS 200 ml 1 GM/200 ML BAG IVPB SCH (21:00)
[2018-11-02] MEDS: Magnesium Hydroxide Susp 30 ml UD PO SCH (21:29)
[2018-11-02] MEDS: Latanoprost 2.5 ml Opht Soln OU SCH (21:32)
[2018-11-03] MEDS: Meropenem 500 MG in Sodium Chloride 0.9% 100 ML IVPB SCH ×3 (02:20→18:32)
[2018-11-03] MEDS: (Novolog) Insulin Aspart, Recombinant 100 u/ml 10 ml vial SC SCH ×4 (07:16→21:54)
--- NOTE | 2018-11-03 08:28 | CP.PCM.PN ---
Subjective - Date & Time of Evaluation Date of Evaluation: 11/03/18 Time of Evaluation: 07:05 - Subjective Subjective: Surgery Progress note. Dr. Cerda Pt seen and examined at bedside. Wound vac placed over sacral decub this morning. 10cm x 15cm x 2cm decubitus noted, wound vac placed, good seal, no air leak. Patient tolerated well. No fevers, no chills. No new complaints. Objective - Vital Signs/Intake and Output Vital Signs (last 24 hours): Temp Pulse Resp BP Pulse Ox 98.0 F 86 20 146/75 96 11/03/18 07:55 11/03/18 07:55 11/03/18 07:55 11/03/18 07:55 11/03/18 07:55 Intake and Output: 11/03/18 11/03/18 06:59 18:59 Output Total 250 Balance -250 - Medications Medications: Current Medications Acetaminophen (Tylenol 325mg Tab) 650 mg PO Q6 PRN PRN Reason: Pain, Mild (1-3) Al Hydrox/Mg Hydrox/Simethicone (Maalox Plus 30 Ml) 30 ml PO Q4 PRN PRN Reason: Indigestion / Heartburn Albuterol Sulfate (Albuterol 0.083% Inhal Giovana (2.5 Mg/3 Ml) Ud) 2.5 mg INH RQ6 PRN PRN Reason: sob Aspirin (Aspirin Chewable) 81 mg PO DAILY [facility] Last Admin: 11/02/18 11:00 Dose: 81 mg Enoxaparin Sodium (Lovenox) 30 mg SC DAILY [facility] Last Admin: 11/02/18 11:04 Dose: 30 mg Famotidine (Pepcid) 20 mg PO DAILY [facility] Last Admin: 11/02/18 11:00 Dose: 20 mg Meropenem 500 mg/ Sodium (Chloride) 100 mls @ 100 mls/hr IVPB Q8H [facility]; Protocol Last Admin: 11/03/18 02:20 Dose: 100 mls/hr Vancomycin/Sodium Chloride (Vancomycin 1 Gm/Ns 200 Ml) 1 gm in 200 mls @ 133 mls/hr IVPB Q24H [facility]; Protocol Stop: 11/06/18 20:01 Last Admin: 11/02/18 21:00 Dose: 133 mls/hr Insulin Aspart (Novolog) 0 unit SC ACHS [facility]; Protocol Last Admin: 11/03/18 07:16 Dose: Not Given Latanoprost (Xalatan Opht) 0 ml OU HS [facility] Last Admin: 11/02/18 21:32 Dose: 1 ml Loperamide HCl (Imodium) 2 mg PO Q6 PRN PRN Reason: Diarrhea Magnesium Hydroxide (Milk Of Magnesia) 30 ml PO HS [facility] Last Admin: 11/02/18 21:29 Dose: 30 ml Pantoprazole Sodium (Protonix Inj) 40 mg IVP DAILY [facility] Last Admin: 11/02/18 11:01 Dose: 40 mg Rosuvastatin Calcium (Crestor) 10 mg PO HS [facility] Last Admin: 11/02/18 21:29 Dose: 10 mg Sodium Polystyrene Sulfonate (Kayexalate Susp) 15 gm PO DAILY [facility] Last Admin: 11/02/18 16:20 Dose: Not Given - Labs Labs: 11/02/18 07:04 11/02/18 07:04 - Constitutional Appears: Non-toxic, No Acute Distress - Head Exam Head Exam: ATRAUMATIC, NORMAL INSPECTION, NORMOCEPHALIC - Eye Exam Eye Exam: EOMI. absent: Scleral icterus - Respiratory Exam Respiratory Exam: NORMAL BREATHING PATTERN. absent: Accessory Muscle Use, Respiratory Distress - Cardiovascular Exam Cardiovascular Exam: absent: JVD - GI/Abdominal Exam GI & Abdominal Exam: Soft. absent: Distended, Guarding, Rigid, Tenderness, Rebound - Neurological Exam Neurological Exam: Awake - Skin Additional comments: sacral decub approx 10cm x 15cm x 2cm. Wound vac placed with good suction, no leaks. Assessment and Plan - Assessment and Plan (Free Text) Assessment: 88yo F with sacral decub Plan: - Continue wound vac - f/u wound care recs - Patient may follow up with Dr. Cerda as outpatient for possible debridement if the wound does not improve Further recs as per Dr. Prashant Velasquez PGY2 surgery
[2018-11-03] MEDS: Sod Polystyrene Sulf 15 gm/60 ml Susp PO SCH (09:14)
[2018-11-03] MEDS: Enoxaparin 30 mg Syringe SC SCH (09:14)
--- NOTE | 2018-11-03 10:11 | PQF ---
PROVIDER RESPONSE TEXT: Present on admission large sacral ulcer REVIEWER QUERY TEXT: Pressure Ulcer Type Pressure ulcer is documented in the Medical Record. Please specify the location, present on admission status and/or stage: Location and laterality of pressure ulcer(s): POA status of each pressure ulcer: -- Not present on admission -- Present on admission -- Other -- Clinically unable to determine -- Unknown Stage of each pressure ulcer (National Pressure Ulcer Advisory Panel definitions): -- Stage I: Intact skin with non-blanchable redness of a localized area -- Stage II: Partial thickness skin loss involving dermis with a shallow open ulcer or an open serum -filled blister -- Stage III: Full thickness skin loss involving damage or necrosis of subcutaneous tissue -- Stage IV: Full thickness skin loss with exposed bone, tendon or muscle -- Unstageable: Full thickness tissue loss in which the base of the ulcer is covered by slough and/o r eschar in the wound bed The patient's Clinical Indicators include: Pt. is 88 Y.O.presents to ED from skilled nursing for nose bleed. PMHx: HTN, Dementia, DVT, CAD.Pt. with sacral ulcer with MRSA. Admitted with Dx. Anemia, Anterior Epistaxis. Tx: Merrem 500 mg IV Q 8 H, Vanco 1 Gm IV once, Vibramycin 100 mg IV q 12 H. Query created by: Yeimy Yates on 11/01/2018 1:22 PM Electronically signed by: Woo Thakur DO 11/03/2018 10:08 AM
--- NOTE | 2018-11-03 14:30 | CP.PCM.PN ---
Subjective - Date & Time of Evaluation Date of Evaluation: 11/03/18 Time of Evaluation: 08:00 - Subjective Subjective: remains comatose / nonverbal / afebrile has wound vac over sacrum right arm swelling more than left Objective - Vital Signs/Intake and Output Vital Signs (last 24 hours): Temp Pulse Resp BP Pulse Ox 98.0 F 90 20 134/75 96 11/03/18 07:55 11/03/18 08:00 11/03/18 07:55 11/03/18 11:20 11/03/18 07:55 Intake and Output: 11/03/18 11/03/18 06:59 18:59 Output Total 250 Balance -250 - Medications Medications: Current Medications Acetaminophen (Tylenol 325mg Tab) 650 mg PO Q6 PRN PRN Reason: Pain, Mild (1-3) Al Hydrox/Mg Hydrox/Simethicone (Maalox Plus 30 Ml) 30 ml PO Q4 PRN PRN Reason: Indigestion / Heartburn Albuterol Sulfate (Albuterol 0.083% Inhal Giovana (2.5 Mg/3 Ml) Ud) 2.5 mg INH RQ6 PRN PRN Reason: sob Aspirin (Aspirin Chewable) 81 mg PO DAILY [facility] Last Admin: 11/03/18 09:14 Dose: 81 mg Enoxaparin Sodium (Lovenox) 30 mg SC DAILY [facility] Last Admin: 11/03/18 09:14 Dose: 30 mg Famotidine (Pepcid) 20 mg PO DAILY [facility] Last Admin: 11/03/18 09:14 Dose: 20 mg Meropenem 500 mg/ Sodium (Chloride) 100 mls @ 100 mls/hr IVPB Q8H [facility]; Protocol Last Admin: 11/03/18 09:28 Dose: 100 mls/hr Vancomycin/Sodium Chloride (Vancomycin 1 Gm/Ns 200 Ml) 1 gm in 200 mls @ 133 mls/hr IVPB Q24H [facility]; Protocol Stop: 11/06/18 20:01 Last Admin: 11/02/18 21:00 Dose: 133 mls/hr Insulin Aspart (Novolog) 0 unit SC ACHS [facility]; Protocol Last Admin: 11/03/18 12:49 Dose: 2 units Latanoprost (Xalatan Opht) 0 ml OU HS [facility] Last Admin: 12/22/18 21:32 Dose: 1 ml Loperamide HCl (Imodium) 2 mg PO Q6 PRN PRN Reason: Diarrhea Magnesium Hydroxide (Milk Of Magnesia) 30 ml PO HS [facility] Last Admin: 11/02/18 21:29 Dose: 30 ml Pantoprazole Sodium (Protonix Inj) 40 mg IVP DAILY [facility] Last Admin: 11/03/18 09:14 Dose: 40 mg Rosuvastatin Calcium (Crestor) 10 mg PO HS [facility] Last Admin: 11/02/18 21:29 Dose: 10 mg Sodium Polystyrene Sulfonate (Kayexalate Susp) 15 gm PO DAILY [facility] Last Admin: 11/03/18 09:14 Dose: Not Given - Labs Labs: 11/02/18 07:04 11/02/18 07:04 - Constitutional Appears: Cachectic, Chronically Ill - Head Exam Head Exam: NORMOCEPHALIC - Eye Exam Eye Exam: absent: Scleral icterus - ENT Exam ENT Exam: Mucous Membranes Dry - Neck Exam Neck Exam: absent: Lymphadenopathy - Respiratory Exam Respiratory Exam: Decreased Breath Sounds - Cardiovascular Exam Cardiovascular Exam: REGULAR RHYTHM - GI/Abdominal Exam GI & Abdominal Exam: Distended - Rectal Exam Rectal Exam: Deferred - Exam Exam: NORMAL INSPECTION - Extremities Exam Extremities Exam: Pedal Edema - Back Exam Back Exam: absent: CVA tenderness (L), CVA tenderness (R) - Neurological Exam Neurological Exam: Altered Assessment and Plan (1) Anemia Status: Acute (2) Acute kidney injury Status: Acute (3) CHF exacerbation Status: Acute (4) Decubitus ulcer Status: Acute (5) Dehydration Status: Acute (6) Failure to thrive Status: Acute (7) Hypertension Status: Acute - Assessment and Plan (Free Text) Assessment: 88 yo female in coma with infected sacral wounds ideally should have diverting colostomy / debridement as prev notes from [facility] indicated likely OM her prognosis is extremely poor consider palliative measures cont empiric IV antibiotics for now
[2018-11-03] MEDS: Vancomycin 1 gm/NS 200 ml 1 GM/200 ML BAG IVPB SCH (20:00)
[2018-11-03] MEDS: Magnesium Hydroxide Susp 30 ml UD PO SCH (21:37)
[2018-11-03] MEDS: Latanoprost 2.5 ml Opht Soln OU SCH (21:54)
--- NOTE | 2018-11-04 00:53 | DS ---
SUBJECTIVE: She is resting comfortably in bed. Family is with her. Actually she is more alert and aware. She was very swollen this morning. I gave her stat dose of Lasix 40 mg IV, and she is diuresing and is not as swollen already now as 45 minutes ago. She is on vancomycin, Xalatan, Tylenol, Protonix, Pepcid, Merrem IV, Lovenox, Lasix, Kayexalate, Imodium, Crestor, aspirin, DuoNeb. PHYSICAL EXAMINATION: GENERAL: She is alert, eyes are open, nonverbal, but she looks like she wants to talk. VITAL SIGNS: 98 temp, 86 pulse, 146/75 blood pressure, 20 respiratory rate, and 96% O2 sat. HEENT: Head is atraumatic, normocephalic. HEART: Regular rate. LUNGS: Decreased breath sounds, but clear. ABDOMEN: Soft, obese, nontender. EXTREMITIES: Trace edema,but improving. LABORATORY DATA: She has a 8.8 white count, 10.1 hemoglobin and 112 platelets that was yesterday, and 139 sodium, potassium 5.6, BUN 80, creatinine 1.1, GFR was 47, last blood sugar was 138, that was also yesterday. I am waiting for labs come in this morning. ASSESSMENT AND PLAN: She will continue with the intravenous antibiotics for the next three weeks at the subacute rehab. Hopefully, she will be discharged today and her goal labs pended back this morning, not sure why. Hopefully, she will be transferred back to for finishing the intravenous antibiotics before she goes home, and we did check her potassium. She has a sepsis and sacral ulcer and she had nosebleed, the packing removed and she did well. Woo Thakur DO MTDD
[2018-11-04] MEDS: Meropenem 500 MG in Sodium Chloride 0.9% 100 ML IVPB SCH ×3 (01:45→18:58)
[2018-11-04] MEDS: (Novolog) Insulin Aspart, Recombinant 100 u/ml 10 ml vial SC SCH ×3 (08:18→16:30)
[2018-11-04] MEDS ORDERED: Pantoprazole 40 mg EC Tab PO SCH (10:00)
[2018-11-04] MEDS: Enoxaparin 30 mg Syringe SC SCH (10:54)
[2018-11-04] MEDS: Sod Polystyrene Sulf 15 gm/60 ml Susp PO SCH (10:55)
[2018-11-04 12:52] LABS: HEMOGLOBIN 10.1 g/dL (11.0-16.0); MEAN CELL VOLUME 84.4 fL (81.0-99.0); MEAN CORPUSCULAR HEMOGLOBIN 27.2 pg (27.0-31.0); MEAN CORPUSCULAR HGB CONC 32.2 g/dL (33.0-37.0); MEAN PLATELET VOLUME 9.2 fL (7.2-11.7); RBC 3.71 Mil/uL (3.80-5.20); RED CELL DISTRIBUTION WIDTH 17.7 % (11.5-14.5); WHITE BLOOD COUNT 7.2 K/uL (4.8-10.8)
--- NOTE | 2018-11-04 12:58 | CP.PCM.PCO ---
Physician Communication Note - Physician Communication Note Physician Communication Note: Wound vac to be placed on 125mmhg continous suction, intermittent intensity
[2018-11-04 13:10] LABS: ALB/GLOB RATIO 0.7 (1.0-2.1); ALBUMIN 2.3 g/dL (3.5-5.0); CALCIUM 8.2 mg/dl (8.6-10.4)
--- NOTE | 2018-11-04 14:43 | CP.PCM.PN ---
Subjective - Date & Time of Evaluation Date of Evaluation: 11/04/18 Time of Evaluation: 09:00 - Subjective Subjective: no change bedridden for [facility]ACHI Objective - Vital Signs/Intake and Output Vital Signs (last 24 hours): Temp Pulse Resp BP Pulse Ox 98.0 F 74 20 125/80 96 11/04/18 07:22 11/04/18 07:22 11/04/18 07:22 11/04/18 07:22 11/04/18 07:22 Intake and Output: 11/04/18 11/04/18 06:59 18:59 Intake Total 340 Output Total 700 Balance -360 - Medications Medications: Current Medications Acetaminophen (Tylenol 325mg Tab) 650 mg PO Q6 PRN PRN Reason: Pain, Mild (1-3) Al Hydrox/Mg Hydrox/Simethicone (Maalox Plus 30 Ml) 30 ml PO Q4 PRN PRN Reason: Indigestion / Heartburn Albuterol Sulfate (Albuterol 0.083% Inhal Giovana (2.5 Mg/3 Ml) Ud) 2.5 mg INH RQ6 PRN PRN Reason: sob Aspirin (Aspirin Chewable) 81 mg PO DAILY [facility] Last Admin: 11/04/18 10:55 Dose: Not Given Enoxaparin Sodium (Lovenox) 30 mg SC DAILY [facility] Last Admin: 11/04/18 10:54 Dose: 30 mg Famotidine (Pepcid) 20 mg PO DAILY [facility] Last Admin: 11/04/18 10:55 Dose: Not Given Meropenem 500 mg/ Sodium (Chloride) 100 mls @ 100 mls/hr IVPB Q8H [facility]; Protocol Last Admin: 11/04/18 10:53 Dose: 100 mls/hr Vancomycin/Sodium Chloride (Vancomycin 1 Gm/Ns 200 Ml) 1 gm in 200 mls @ 133 mls/hr IVPB Q24H [facility]; Protocol Stop: 11/06/18 20:01 Last Admin: 11/03/18 20:00 Dose: 133 mls/hr Insulin Aspart (Novolog) 0 unit SC ACHS [facility]; Protocol Last Admin: 11/04/18 12:23 Dose: Not Given Latanoprost (Xalatan Opht) 0 ml OU HS [facility] Last Admin: 11/03/18 21:54 Dose: 1 ml Loperamide HCl (Imodium) 2 mg PO Q6 PRN PRN Reason: Diarrhea Magnesium Hydroxide (Milk Of Magnesia) 30 ml PO HS [facility] Last Admin: 11/03/18 21:37 Dose: 30 ml Pantoprazole Sodium (Protonix Ec Tab) 40 mg PO DAILY [facility] Last Admin: 11/04/18 10:55 Dose: Not Given Rosuvastatin Calcium (Crestor) 10 mg PO HS [facility] Last Admin: 11/03/18 21:37 Dose: 10 mg Sodium Polystyrene Sulfonate (Sodium Polystyrene Sulfonate) 15 gm PO DAILY [facility] - Labs Labs: 11/04/18 12:42 11/04/18 12:42 - Constitutional Appears: Confused, Cachectic, Chronically Ill - Head Exam Head Exam: NORMOCEPHALIC - Eye Exam Eye Exam: absent: Scleral icterus - ENT Exam ENT Exam: Mucous Membranes Dry - Neck Exam Neck Exam: absent: Lymphadenopathy - Respiratory Exam Respiratory Exam: Decreased Breath Sounds - Cardiovascular Exam Cardiovascular Exam: REGULAR RHYTHM - GI/Abdominal Exam GI & Abdominal Exam: Distended Assessment and Plan (1) Anemia Status: Acute (2) Acute kidney injury Status: Acute (3) CHF exacerbation Status: Acute (4) Decubitus ulcer Status: Acute (5) Dehydration Status: Acute (6) Failure to thrive Status: Acute (7) Hypertension Status: Acute
--- NOTE | 2018-11-04 15:06 | PCM.HF ---
Heart Failure Core Measure AnticoagulationTherapy for Atrial Fibrillation/Atrialflutter: Yes
[2018-11-04 16:13] VITALS: BP 154/89; TEMP 97.8; O2SAT 100
[2018-11-04 19:13] VITALS: PULSE 85
--- NOTE | 2018-11-05 03:04 | DS ---
SUBJECTIVE: She is resting comfortably in bed. I am trying to discharge her back to the [facility] where she has been getting IV antibiotics for her sacral ulcer and I believe the midline came out, we will instead put a PICC line in today, then she can go to finish her vancomycin and her Merrem. She was seen by Infectious Disease, Surgery, ENT, Oncology, GI. Did well. PHYSICAL EXAMINATION: VITAL SIGNS: Temperature 98.8, 74 pulse, 133/82 blood pressure, 29 respiratory rate, 94% O2 sat on 2 L. HEAD: Atraumatic, normocephalic. HEART: Regular rate. NOSE: No bleeding any more. The packing is out. LUNGS: Clear to auscultation. ABDOMEN: Soft. EXTREMITIES: No edema. She has a large sacral ulcer. LABORATORY DATA: White count 8.8, 10.1 hemoglobin, 30.5 hematocrit with 112, 000 platelets. Last blood sugar is 123, 139 sodium, potassium awaiting for this morning's, it was 5.6. BUN 80, creatinine 1.1, GFR is 47, calcium is 8.5, AST 27, ALT 22, alk phos 149. ASSESSMENT AND PLAN: The plan is to get a peripherally inserted central catheter line in, then discharge back to the subacute rehabilitation. She had nosebleeds. She had urinary tract infection. She has anemia, dementia, sacral ulcer with methicillin-resistant staphylococcus aureus, high potassium. Woo Thakur DO
== END 2018-11-04 20:10 | DRG 871 ==
LOC: C.ER 14:07 → C.6T 19:15
PROVIDERS: ADMIT Family Medicine; ATTEND Family Medicine
PROC: 30233N1 Transfusion of Nonautologous Red Blood Cells into Peripheral Vein, Percutaneous Approach (ICD-10-PCS; 2018-10-31)
PROC: 02HV33Z Insertion of Infusion Device into Superior Vena Cava, Percutaneous Approach (ICD-10-PCS; principal; 2018-11-04)
DX: A41.51 Sepsis due to Escherichia coli [E. coli] (principal); L89.154 Pressure ulcer of sacral region, stage 4; R40.20 Unspecified coma; D62 Acute posthemorrhagic anemia; I13.0 Hypertensive heart and chronic kidney disease with heart failure and stage 1 through stage 4 chronic kidney disease, or unspecified chronic kidney disease; N17.9 Acute kidney failure, unspecified; N39.0 Urinary tract infection, site not specified; L03.113 Cellulitis of right upper limb; D63.1 Anemia in chronic kidney disease; E03.9 Hypothyroidism, unspecified; E78.00 Pure hypercholesterolemia, unspecified; E86.0 Dehydration; F03.90 Unspecified dementia, unspecified severity, without behavioral disturbance, psychotic disturbance, mood disturbance, and anxiety; I25.10 Atherosclerotic heart disease of native coronary artery without angina pectoris; I50.9 Heart failure, unspecified; B95.62 Methicillin resistant Staphylococcus aureus infection as the cause of diseases classified elsewhere; N18.3 Chronic kidney disease, stage 3 (moderate); R04.0 Epistaxis; R62.7 Adult failure to thrive; Z74.01 Bed confinement status; Z86.718 Personal history of other venous thrombosis and embolism; Z95.1 Presence of aortocoronary bypass graft; Z95.5 Presence of coronary angioplasty implant and graft; I80.8 Phlebitis and thrombophlebitis of other sites; J34.2 Deviated nasal septum

== ENCOUNTER 2018-11-22 17:02 | Inpatient (IN) | payer MEDICARE, OTHER | END 2018-12-03 23:41 | disposition designated cancer center or children's hospital (05) | LOC: C.9I 11-24 12:01 → C.5S 11-30 10:04 → C.ER 17:02 → C.9E 19:30 → C.6T 21:40 ==